=== PATIENT | male | born 1955 | race Caucasian/White ===

== ENCOUNTER 2017-01-03 05:02 | Inpatient (IN) | payer MEDICAID ==
[2017-01-03] MEDS ORDERED: IOPAMIDOL (ISOVUE-300) 100 ML BTL ONE (05:22)
[2017-01-03 06:06] LABS: % IMMATURE GRANULYOCYTES 0.6 % (0.0-1.1); ADD DIFF? NO; ADD MORPH? NO; ADD SCAN? NO; ATYPICAL LYMPHOCYTE FLAG 0 (0-99); FRAGMENT RBC FLAG 0 (0-99); HEMATOCRIT 51.2 % (40.0-51.0); HEMOGLOBIN 17.2 g/dL (13.7-17.5); LEFT SHIFT FLG 0 (0-99); LIPEMIA HEMOLYSIS FLAG 80 (0-99); MEAN CELL HEMOGLOBIN 27.8 pg (27.9-34.1); MEAN CELL HEMOGLOBIN CONCENTR. 33.6 g/dL (32.4-36.7); MEAN CELL VOLUME 82.8 fL (81.5-99.8); PLATELET CLUMPS FLAG 0 (0-99); PLATELET COUNT 298 10^3/uL (150-400); RED BLOOD CELL COUNT 6.18 10^6/uL (4.40-6.38); RED CELL DISTRIBUTION WIDTH 18.2 % (11.5-15.2)
[2017-01-03 06:15] LABS: ALANINE AMINOTRANSFERASE 40 IU/L (21-72); ALBUMIN 4.1 g/dL (3.5-5.0); ALKALINE PHOSPHATASE 120 IU/L (38-126); ANION GAP 19 mEq/L (8-16); ASPARTATE AMINOTRANSFERASE 40 IU/L (17-59); BILIRUBIN,TOTAL 1.6 mg/dL (0.1-1.4); BILIRUBIN-CONJUGATED 0.5 mg/dL (0.0-0.5); BILIRUBIN-UNCONJUGATED 1.1 mg/dL (0.0-1.1); CALCIUM 8.9 mg/dL (8.5-10.4); CARBON DIOXIDE 28 mEq/l (22-31); CHLORIDE 92 mEq/L (97-110); CREATININE 2.4 mg/dL (0.7-1.3); GLOMERULAR FILTRATION RATE 27; GLUCOSE 228 mg/dL (70-100); SODIUM 139 mEq/L (134-144); TOTAL PROTEIN 6.9 g/dL (6.3-8.2)
[2017-01-03 06:21] LABS: POTASSIUM 2.1 mEq/L (3.5-5.2)
[2017-01-03] MEDS ORDERED: POTASSIUM Cl (KCl) 100 ML IV ONE ×2 (06:23→07:21)
--- NOTE | 2017-01-03 06:50 | EDPHY ---
H & P Stated Complaint: Constipation Source: Patient, EMS Exam Limitations: No limitations - Personal History Current Tetanus Diphtheria and Acellular Pertussis (TDAP): Yes Tetanus Vaccine Date: 07/2011 - Medical/Surgical History Hx Asthma: No Hx Chronic Respiratory Disease: No Hx Diabetes: Yes Hx Cardiac Disease: Yes Hx Renal Disease: Yes Hx Cirrhosis: No Hx Alcoholism: No Hx HIV/AIDS: No Hx Splenectomy or Spleen Trauma: No Other PMH: medical: high blood pressure., renal problems, DM ,venous stasis, CHF. surgery: vasectomy. - Social History Smoking Status: Never smoked <Promise Castellon - Last Filed: 01/03/17 06:47> <Woody Mora - Last Filed: 01/03/17 09:46> Time Seen by Provider: 01/03/17 05:07 HPI/ROS: HPI The patient presents with constipation which has been present for the last 3 days, he has been unable to have a bowel movement. He normally takes Mylanta for this but that has not been helping. He has had abdominal pain since midnight tonight which is diffuse, cramping in nature, moderate in severity. He has not had any vomiting or fever. He is brought in by ambulance from his assisted living facility. He received Phenergan in the field. REVIEW OF SYSTEMS Constitutional: No fever, no chills. Eyes: No discharge. ENT: No sore throat. Cardiovascular: No chest pain, no palpitations. Respiratory: No cough, no shortness of breath. Gastrointestinal: See HPI Genitourinary: No hematuria. Musculoskeletal: No back pain. Skin: No rashes. Neurological: No headache. PMHx: Chronic kidney insufficiency, type 2 diabetes with nephropathy, history of anasarca, hypokalemia, suspected obstructive sleep apnea, hypertension, right -sided heart failure Soc Hx: Resides at an assisted living facility PHYSICAL General Appearance: Alert, no distress Eyes: Pupils equal and round no pallor or injection ENT, Mouth: Mucous membranes moist Respiratory: There are no retractions, lungs are clear to auscultation Cardiovascular: Regular rate and rhythm Gastrointestinal: Abdomen is obese and soft with mild diffuse tenderness, no rebound or guarding Neurological: A&O, moves all extremities Skin: Warm and dry, no rashes Musculoskeletal: Neck is supple non tender Extremities: symmetrical, full range of motion Psychiatric: Patient is oriented X 3, there is no agitation (Promise Castellon) Constitutional: Initial Vital Signs Temperature (C) 36.6 C 01/03/17 05:21 Heart Rate 67 01/03/17 05:21 Respiratory Rate 16 01/03/17 05:21 Blood Pressure 150/68 H 01/03/17 05:21 O2 Sat (%) 90 L 01/03/17 05:21 O2 Delivery Mode Nasal Cannula O2 (L/minute) 2.5 Allergies/Adverse Reactions: Sulfa (Sulfonamide Antibiotics) [Sulfa(Sulfonamide Antibiotics)] Allergy ( Intermediate, Verified 01/03/17 05:29) Hives Home Medications: Medication Instructions Recorded Aspirin [Aspirin 81mg (*)] 81 mg PO DAILY 01/02/14 Rosuvastatin Calcium [Crestor 20mg 20 mg PO HS 01/02/14 (*)] Ibuprofen [Motrin (*)] 400 mg PO BID PRN 05/11/16 Insulin Regular, Human [Humulin R 22 unit SQ DAILY@1730 05/11/16 U-500] Insulin Regular, Human [Humulin R 71 unit SQ DAILY@0730 05/11/16 U-500] Allopurinol [Allopurinol 100 MG 100 mg PO DAILY #0 tab 05/14/16 (*)] Bumetanide [Bumex (*)] 4 mg PO BID #30 tab 05/14/16 Gabapentin [Neurontin 300 MG (*)] 300 mg PO BID #0 cap 05/14/16 Metolazone [Zaroxolyn 2.5 mg (RX)] 2.5 mg PO DAILY 01/03/17 Metoprolol Tartrate [Lopressor 50 50 mg PO BID 01/03/17 mg (*)] Potassium Cl [Klor-Con 20 meq (*)] 40 meq PO BID 01/03/17 Medical Decision Making <Promise Castellon - Last Filed: 01/03/17 06:47> - Diagnostics Imaging: Discussed imaging studies w/ lithographer helper Radiologist, I viewed and interpreted images myself <Woody Mora - Last Filed: 01/03/17 09:46> ED Course/Re-evaluation: In the ER, basic labs were checked, potassium is low at 2.1. This could be related to over diuresis. He also has a leukocytosis. Because of his kidney disease, we plan to perform non con scan of his abdomen pelvis. At 7:00 a.m., the case is signed out to the oncoming provider Dr. Mora pending CT scan results. (Promise Castellon) Differential Diagnosis: This is a 61-year-old man with multiple medical problems including right-sided heart failure, obesity, diabetes, hypertension who presents with abdominal pain since midnight in the setting of constipation for the last 3 days. Differential diagnosis includes constipation, bowel obstruction, appendicitis. (Promise Castellon) Other Provider: I received signout at 0700. CT shows urinary obstruction with distended bladder. No surgical pathology. Given discomfort and hypokalemia, patient requires admission to the hospital. I spoke to Dr. Johnston who accepts admission. (Woody Mora) - Data Points Laboratory Results: Laboratory Results 01/03/17 05:50 01/03/17 05:50 01/03/17 01/03/17 05:50 05:50 WBC 15.84 10^3/uL H 10^3/uL (3.80-9.50) RBC 6.18 10^6/uL 10^6/uL (4.40-6.38) Hgb 17.2 g/dL g/dL (13.7-17.5) Hct 51.2 % H % (40.0-51.0) MCV 82.8 fL fL (81.5-99.8) MCH 27.8 pg L pg (27.9-34.1) MCHC 33.6 g/dL g/dL (32.4-36.7) RDW 18.2 % H % (11.5-15.2) Plt Count 298 10^3/uL 10^3/uL (150-400) MPV 11.0 fL fL (8.7-11.7) Neut % (Auto) 76.0 % H % (39.3-74.2) Lymph % (Auto) 12.9 % L % (15.0-45.0) [place] % (Auto) 8.0 % % (4.5-13.0) Eos % (Auto) 1.8 % % (0.6-7.6) Baso % (Auto) 0.7 % % (0.3-1.7) Nucleat RBC Rel Count 0.0 % % (0.0-0.2) Absolute Neuts (auto) 12.03 10^3/uL H 10^3/uL (1.70-6.50) Absolute Lymphs (auto) 2.05 10^3/uL 10^3/uL (1.00-3.00) Absolute Monos (auto) 1.27 10^3/uL H 10^3/uL (0.30-0.80) Absolute Eos (auto) 0.28 10^3/uL 10^3/uL (0.03-0.40) Absolute Basos (auto) 0.11 10^3/uL H 10^3/uL (0.02-0.10) Absolute Nucleated RBC 0.00 10^3/uL 10^3/uL (0-0.01) Immature Gran % 0.6 % % (0.0-1.1) Immature Gran # 0.10 10^3/uL 10^3/uL (0.00-0.10) Sodium 139 mEq/L mEq/L (134-144) Potassium 2.1 mEq/L L* mEq/L (3.5-5.2) Chloride 92 mEq/L L mEq/L (97-110) Carbon Dioxide 28 mEq/l mEq/l (22-31) Anion Gap 19 mEq/L H mEq/L (8-16) BUN 69 mg/dL H mg/dL (7-23) Creatinine 2.4 mg/dL H mg/dL (0.7-1.3) Estimated GFR 27 Glucose 228 mg/dL H mg/dL (70-100) Calcium 8.9 mg/dL mg/dL (8.5-10.4) Total Bilirubin 1.6 mg/dL H mg/dL (0.1-1.4) Conjugated Bilirubin 0.5 mg/dL mg/dL (0.0-0.5) Unconjugated Bilirubin 1.1 mg/dL mg/dL (0.0-1.1) AST 40 IU/L IU/L (17-59) ALT 40 IU/L IU/L (21-72) Alkaline Phosphatase 120 IU/L IU/L (38-126) Total Protein 6.9 g/dL g/dL (6.3-8.2) Albumin 4.1 g/dL g/dL (3.5-5.0) Lipase 87.0 IU/L IU/L (23-300) Medications Given: Discontinued Medications Potassium Chloride (Potassium Cl 20 Meq (Premix)) 100 mls @ 50 mls/hr IV EDNOW ONE Stop: 01/03/17 08:22 Last Admin: 01/03/17 07:22 Dose: Not Given Potassium Chloride (Potassium Cl 10 Meq (Premix)) 100 mls @ 100 mls/hr IV ONCE ONE Stop: 01/03/17 08:20 Last Admin: 01/03/17 07:38 Dose: Not Given Potassium Chloride (Potassium Cl 10 Meq (Premix)) 100 mls @ 100 mls/hr IV EDNOW ONE Stop: 01/03/17 08:20 Last Admin: 01/03/17 07:36 Dose: Not Given Morphine Sulfate (Morphine) 4 mg IVP EDNOW ONE Stop: 01/03/17 06:29 Last Admin: 01/03/17 06:38 Dose: 4 mg Potassium Chloride (Potassium Chloride Oral Liquid) 40 meq PO EDNOW ONE Stop: 01/03/17 07:38 Last Admin: 01/03/17 08:17 Dose: 40 meq Departure <Promise Castellon - Last Filed: 01/03/17 06:47> <Woody Mora - Last Filed: 01/03/17 09:46> - Departure Disposition: [facility] Inpatient Acute Clinical Impression: Hypokalemia, Renal failure (ARF), acute on chronic Hypertension Qualifiers: Hypertension type: essential hypertension Qualified Code(s): I10 - Essential ( primary) hypertension Diabetes Qualifiers: Diabetes mellitus type: due to underlying condition Diabetes mellitus complication status: with other specified complication 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
[2017-01-03] MEDS ORDERED: POTASSIUM Cl (KCl) 10 MEQ/100 ML BAG IV ONE (07:07)
[2017-01-03] MEDS: POTASSIUM Cl (KCl) 100 ML IV ONE ×2 (07:22→07:38)
[2017-01-03] MEDS ORDERED: POTASSIUM CL 20 MEQ/15 ML UDCUP PO ONE (07:37)
[2017-01-03] MEDS ORDERED: ACETAMINOPHEN 325 MG TAB PO PRN (07:59)
[2017-01-03] MEDS ORDERED: ONDANSETRON DISINTEGRATING 4 MG TAB PO PRN (07:59)
[2017-01-03] MEDS ORDERED: ONDANSETRON 4 MG/2 ML VIAL IVP PRN (07:59)
[2017-01-03 08:07] LABS: COLOR YELLOW; LEUKOCYTE ESTERASE,URINE NEGATIVE (NEGATIVE); NITRITE,URINE NEGATIVE (NEGATIVE)
[2017-01-03] MEDS ORDERED: D50W 25 GM/50 ML SYR IVP PRN ×3 (08:17→17:09)
[2017-01-03] MEDS ORDERED: TAMSULOSIN HCL 0.4 MG CAP PO ONE (08:22)
[2017-01-03] MEDS: TAMSULOSIN HCL 0.4 MG CAP PO SCH (08:26)
--- NOTE | 2017-01-03 08:38 | GHP ---
[f rep st] HISTORY AND PHYSICAL DATE OF ADMISSION: 01/03/2017 CHIEF COMPLAINT: Abdominal pain. HISTORY OF PRESENT ILLNESS: This is a 61-year-old man with right-sided heart failure who presents with abdominal pain. This is acute, described as lower abdomen. Started this evening. Because of this, he presented to the ED. In the ED, a CT scan was obtained which showed urinary retention. Gallo was placed. He had immediate resolution of his abdominal pain. There were no other acute findings. He has a history of right-sided heart failure with significant lower extremity edema. He is on diuretics. He takes Bumex and metolazone. Meds are still being reconciled, but it appears that he takes potassium 80 twice a day. PAST MEDICAL/SURGICAL HISTORY: 1. Chronic right-sided heart failure. 2. Diabetes mellitus. 3. Severe obesity. 4. Chronic kidney disease, baseline creatinine about 2. 5. Diabetic nephropathy. 6. Hypertension. 7. Hyperlipidemia. 8. Obstructive sleep apnea. 9. Mild hypokalemia. 10. Gout. MEDICATIONS: Please see medication reconciliation. ALLERGIES: Sulfa. FAMILY HISTORY: Noncontributory. SOCIAL HISTORY: He lives at [facility]. REVIEW OF SYSTEMS: A 10-point review of systems is conducted and is negative, except per HPI. PHYSICAL EXAMINATION: VITAL SIGNS: Blood pressure 149/68, heart rate 65, respiration rate 14, temperature 36.8. GENERAL: The patient is a very pleasant man. He is obese. HEENT: Show him to be normocephalic, atraumatic. CARDIOVASCULAR: Regular rate and rhythm. No murmurs, rubs, or gallops. PULMONARY: Shows lungs clear to auscultation bilaterally. ABDOMEN: Soft, nontender, nondistended. SKIN: Shows no rash. : Shows a Gallo in place. NEUROLOGIC: Shows him to be alert and oriented x3. He is moving all extremities. PSYCHIATRIC: Shows normal mood and affect. LABORATORIES: White count 15.8. INR is 1.07. Potassium is 2.1, creatinine is 2.4, BUN is 69. Urinalysis is pending. Urine drug screen is negative. DATA: 1. I reviewed the initial interpretation of his abdominal pelvis CT scan. Findings per HPI. 2. I discussed with Dr. Mora. We will admit for hypokalemia. IMPRESSION AND PLAN: A 61-year-old man with abdominal pain which is resolved and hypokalemia. 1. Urinary retention causing abdominal pain: Resolved with Gallo in place. He will need to be discharged with a Gallo. We will start him on Flomax. He will need urology followup. 2. Hypokalemia: This is severe. He tells me his normal potassium is between 2 and 3. He is not on any potassium-sparing diuretics. I have placed a call to Renal to corroborate this. He has already received 40 of oral potassium. 3. Right-sided heart failure: We will continue his outpatient diuretics. 4. Chronic kidney disease: Avoid nephrotoxins. 5. Diabetes mellitus: We will continue his home insulin and follow his blood sugars. 6. Obstructive sleep apnea. 7. Hypertension. 8. Hyperlipidemia. 9. Code status is do not resuscitate. 10. Venous thromboembolism risk is moderate to high. We will give him heparin. /[id number]/MODL MTDD
[2017-01-03] MEDS ORDERED: INSULIN LISPRO 100 UNIT/ML SC SCH ×2 (12:00→17:30)
--- NOTE | 2017-01-03 12:06 | PDGENHP ---
History and Physical - Chief Complaint CKD, hypokalemia - History of Present Illness Mr. Elmore is a 61 yo M with h/o HTN, CKD stage IV with baseline Cr around 2.2 -2.6, who presented today with abdominal pain and found to be hypokalemic. He presented with severe abdominal pain that started last night, found to have full bladder and curiel placed with 1.6L UOP, immediately felt better. On labs, his Cr is at baseline at 2.4, but K 2.1. He follows with beauty consultant Dr. Abdi but has not been seen in clinic since 05/2016, has missed several appointments in the interim. His K tends to run low, likely due to being on metolazone and Bumex for his chronic edema. His K usually is in the 2.8-3.3 range, takes potassium replacement at home, now up to 80meq daily. He states he was taking his meds at home. History Information - Allergies/Home Medication List Allergies/Adverse Reactions: Sulfa (Sulfonamide Antibiotics) [Sulfa(Sulfonamide Antibiotics)] Allergy ( Intermediate, Verified 01/03/17 05:29) Hives Home Medications: Aspirin [Aspirin 81mg (*)] 81 mg PO DAILY 01/02/14 [Last Taken 01/02/17] Rosuvastatin Calcium [Crestor 20mg (*)] 20 mg PO HS 01/02/14 [Last Taken ] Ibuprofen [Motrin (*)] 400 mg PO BID PRN 05/11/16 [Last Taken Unknown] Insulin Regular, Human [Humulin R U-500] 130 unit SQ DAILY@1800 05/11/16 [Last Taken Unknown] Insulin Regular, Human [Humulin R U-500] 360 unit SQ DAILY@0730 05/11/16 [Last Taken 01/02/17] Gatifloxacin 0.5% [Zymaxid 0.5%] 1 drop EACHEYE AD PRN 01/03/17 [Last Taken Unknown] Insulin Regular, Human [Humulin R U-500] 30 unit SQ DAILY@12 01/03/17 [Last Taken 01/02/17] Ketorolac 0.5% [Acular 0.5% Opht Drops (*)] 1 drops EACHEYE AD PRN 01/03/17 [ Last Taken Unknown] Metolazone [Zaroxolyn 2.5 mg (RX)] 2.5 mg PO DAILY 01/03/17 [Last Taken 01/02/17 ] Metoprolol Tartrate [Lopressor 50 mg (*)] 50 mg PO BID 01/03/17 [Last Taken ] Potassium Cl [Klor-Con 20 meq (*)] 40 meq PO BID 01/03/17 [Last Taken 01/02/17] oxyCODONE IR [Oxycodone Ir (*)] 10 mg PO TID PRN 01/03/17 [Last Taken 01/02/17] I have personally reviewed and updated: medical history - Past Medical History Additional medical history: CKD stage IV. HTN. DM. Gout. CHF. hypokalemia. ARIEL - Surgical History Additional surgical history: noncontributory - Family History Additional family history: noncontributory - Social History Smoking Status: Never smoked Review of Systems ROS: 10pt was reviewed & negative except for what was stated in HPI & below Physical Exam Temp Pulse Resp BP Pulse Ox 36.8 C 88 16 133/85 H 96 01/03/17 06:00 01/03/17 11:00 01/03/17 11:00 01/03/17 11:00 01/03/17 11:00 Constitutional: no apparent distress, not in pain, obese Eyes: PERRL, anicteric sclera, EOMI Ears, Nose, Mouth, Throat: moist mucous membranes, hearing normal Cardiovascular: regular rate and rhythym, pulses symmetric bilaterally, edema (+ 1 edema BLE) Peripheral Pulses: 2+: dorsalis-pedis (R), dorsalis-pedis (L) Respiratory: no respiratory distress, no rales or rhonchi, clear to auscultation Gastrointestinal: normoactive bowel sounds, soft, non-tender abdomen Skin: warm, No rash Musculoskeletal: no muscle tenderness, no joint effusions Neurologic: AAOx3, CN II-XII Intact, No asterixes Psychiatric: interacting appropriately, not anxious, not encephalopathic Lab Data & Imaging Review 01/03/17 05:50 01/03/17 05:50 WBC 15.84 10^3/uL (3.80-9.50) H 01/03/17 05:50 RBC 6.18 10^6/uL (4.40-6.38) 01/03/17 05:50 Hgb 17.2 g/dL (13.7-17.5) 01/03/17 05:50 Hct 51.2 % (40.0-51.0) H 01/03/17 05:50 MCV 82.8 fL (81.5-99.8) 01/03/17 05:50 MCH 27.8 pg (27.9-34.1) L 01/03/17 05:50 MCHC 33.6 g/dL (32.4-36.7) 01/03/17 05:50 RDW 18.2 % (11.5-15.2) H 01/03/17 05:50 Plt Count 298 10^3/uL (150-400) 01/03/17 05:50 MPV 11.0 fL (8.7-11.7) 01/03/17 05:50 Neut % (Auto) 76.0 % (39.3-74.2) H 01/03/17 05:50 Lymph % (Auto) 12.9 % (15.0-45.0) L 01/03/17 05:50 [place] % (Auto) 8.0 % (4.5-13.0) 01/03/17 05:50 Eos % (Auto) 1.8 % (0.6-7.6) 01/03/17 05:50 Baso % (Auto) 0.7 % (0.3-1.7) 01/03/17 05:50 Nucleat RBC Rel Count 0.0 % (0.0-0.2) 01/03/17 05:50 Absolute Neuts (auto) 12.03 10^3/uL (1.70-6.50) H 01/03/17 05:50 Absolute Lymphs (auto) 2.05 10^3/uL (1.00-3.00) 01/03/17 05:50 Absolute Monos (auto) 1.27 10^3/uL (0.30-0.80) H 01/03/17 05:50 Absolute Eos (auto) 0.28 10^3/uL (0.03-0.40) 01/03/17 05:50 Absolute Basos (auto) 0.11 10^3/uL (0.02-0.10) H 01/03/17 05:50 Absolute Nucleated RBC 0.00 10^3/uL (0-0.01) 01/03/17 05:50 Immature Gran % 0.6 % (0.0-1.1) 01/03/17 05:50 Immature Gran # 0.10 10^3/uL (0.00-0.10) 01/03/17 05:50 Sodium 139 mEq/L (134-144) 01/03/17 05:50 Potassium 2.1 mEq/L (3.5-5.2) L* 01/03/17 05:50 Chloride 92 mEq/L (97-110) L 01/03/17 05:50 Carbon Dioxide 28 mEq/l (22-31) 01/03/17 05:50 Anion Gap 19 mEq/L (8-16) H 01/03/17 05:50 BUN 69 mg/dL (7-23) H 01/03/17 05:50 Creatinine 2.4 mg/dL (0.7-1.3) H 01/03/17 05:50 Estimated GFR 27 01/03/17 05:50 Glucose 228 mg/dL (70-100) H 01/03/17 05:50 Calcium 8.9 mg/dL (8.5-10.4) 01/03/17 05:50 Total Bilirubin 1.6 mg/dL (0.1-1.4) H 01/03/17 05:50 Conjugated Bilirubin 0.5 mg/dL (0.0-0.5) 01/03/17 05:50 Unconjugated Bilirubin 1.1 mg/dL (0.0-1.1) 01/03/17 05:50 AST 40 IU/L (17-59) 01/03/17 05:50 ALT 40 IU/L (21-72) 01/03/17 05:50 Alkaline Phosphatase 120 IU/L (38-126) 01/03/17 05:50 Total Protein 6.9 g/dL (6.3-8.2) 01/03/17 05:50 Albumin 4.1 g/dL (3.5-5.0) 01/03/17 05:50 Lipase 87.0 IU/L (23-300) 01/03/17 05:50 Urine Color YELLOW 01/03/17 08:02 Urine Appearance CLEAR 01/03/17 08:02 Urine pH 7.0 (5.0-7.5) 01/03/17 08:02 Ur Specific [place] 1.008 (1.002-1.030) 01/03/17 08:02 Urine Protein NEGATIVE (NEGATIVE) 01/03/17 08:02 Urine Ketones NEGATIVE (NEGATIVE) 01/03/17 08:02 Urine Blood NEGATIVE (NEGATIVE) 01/03/17 08:02 Urine Nitrate NEGATIVE (NEGATIVE) 01/03/17 08:02 Urine Bilirubin NEGATIVE (NEGATIVE) 01/03/17 08:02 Urine Urobilinogen NEGATIVE EU (0.2-1.0) 01/03/17 08:02 Ur Leukocyte Esterase NEGATIVE (NEGATIVE) 01/03/17 08:02 Urine Glucose NEGATIVE (NEGATIVE) 01/03/17 08:02 Assessment & Plan Assessment: Assessment/Plan: CKD stage IV: pt has Cr at baseline at 2.4, no hematuria or proteinuria on UA. - No need for HD. - Will continue to monitor. - Avoid nephrotoxins. - Encouraged pt to f/u in clinic, will schedule on his discharge. Hypokalemia: chronic, markedly low today at 2.1. Likely due to his diuretic use. - Hold diuretics for now. - Given KCl 40meq po x1 today. - Will recheck today and further replace as needed. - If further diuresis required, could try a potassium-sparing diuretic, but would need close monitoring with his renal disease. Hypervolemia: likely due to CHF, chronic. - Hold diuretics now as above. - May need to consider a potassium sparing diuretic. Thank you for the interesting consult. Nephrology will continue to follow, please call with any additional questions or concerns.
[2017-01-03] MEDS ORDERED: oxyCODONE IR 5 MG TAB PO PRN (12:57)
[2017-01-03] MEDS ORDERED: KETOROLAC 0.5% 5 ML OPHT.BTL EACHEYE PRN (12:57)
[2017-01-03] MEDS ORDERED: GATIFLOXACIN 0.5% 2.5 ML OPHT DROPS EACHEYE PRN (12:57)
[2017-01-03 13:12] LABS: ANION GAP 16 mEq/L (8-16); CALCIUM 8.8 mg/dL (8.5-10.4); CARBON DIOXIDE 30 mEq/l (22-31); CHLORIDE 91 mEq/L (97-110); CREATININE 2.2 mg/dL (0.7-1.3); GLOMERULAR FILTRATION RATE 30; GLUCOSE 294 mg/dL (70-100); SODIUM 137 mEq/L (134-144)
[2017-01-03 13:22] LABS: POTASSIUM 2.3 mEq/L (3.5-5.2)
[2017-01-03] MEDS: HEPARIN 5,000 UNIT/0.5 ML SYR SC SCH ×2 (15:21→21:50)
[2017-01-03] MEDS: POTASSIUM CL 20 MEQ TAB PO SCH ×2 (15:21→21:50)
[2017-01-03] MEDS: ASPIRIN 81 MG CHEWABLE TAB PO SCH (15:21)
[2017-01-03] MEDS: oxyCODONE IR 5 MG TAB PO PRN (15:21)
[2017-01-03] MEDS: METOPROLOL TARTRATE 50 MG TAB PO SCH ×2 (15:21→21:52)
[2017-01-03] MEDS: POTASSIUM Cl (KCl) 100 ML IV SCH ×6 (15:22→23:45)
--- NOTE | 2017-01-03 17:20 | HOSPPROG ---
Hospitalist Progress Note Assessment/Plan: Pt admitted this am. I saw pt and reviewed the chart. Urinary retention - curiel in place, will continue until outpt urology f/u Hypokalemia - in setting of high diuretic and insulin doses. K is up to 2.3 from 2.1 after 40 po K and 30 IV K. Will continue aggressive repletion with 40 mEq's PO TID and 10 mEq's IV x6 doses, recheck this evening. Holding diuretics until K improved. May do better with a potassium sparing diuretic, though will need to monitor closely with kidney disease CKD - Cr near baseline, appreciate renal consult Right heart failure - difficult to diurese. He is not hypoxic though is, as always, volume up. Will need to resume diuretics tomorrow. DM - on large doses of U-500 and unable to obtain his home insulin. Discussed with pharmacy. There is no easy conversion to regular insulin based on the difference in absorption. Will give Lantus 60 u BID plus high dose SSI with Lispro ACHS, uptitrate as indicated. ARIEL - he doesn't use cpap, should have this evaluated as outpt Hypertension Hyperlipidemia Full code Dispo - obs for now, will change to inpt tomorrow if ongoing hospitalization required. Subjective: Pt feels better. He is fatigued. Denies CP or SOB. Objective: Vital Signs Temp Pulse Resp BP Pulse Ox 36.8 C 82 19 108/61 94 01/03/17 06:00 01/03/17 15:21 01/03/17 14:22 01/03/17 15:21 01/03/17 14:22 Laboratory Results 01/03/17 12:37 01/02/17 01/03/17 01/04/17 05:59 05:59 05:59 Output Total 3200 Balance -3200 ICD10 Worksheet Patient Problems: Problems Problem Status Onset Diabetes Acute Hypokalemia Acute Renal failure (ARF), acute on chronic Acute Hypertension Chronic Acute hypokalemia Acute Anasarca Acute Bilateral lower extremity edema Acute CHF (congestive heart failure) Acute CHF with right heart failure Acute Elevated BUN Acute Fluid overload Acute Obesity Acute Peripheral edema Acute Pneumonia Acute Hyperlipidemia Chronic Renal failure, chronic Chronic
[2017-01-03] MEDS: INSULIN LISPRO 100 UNIT/ML SC SCH ×2 (17:30→21:50)
[2017-01-03] MEDS ORDERED: INSULIN REGULAR HUMAN 130 UNIT SQ SCH (18:00)
[2017-01-03 18:51] LABS: ANION GAP 15 mEq/L (8-16); CALCIUM 8.4 mg/dL (8.5-10.4); CARBON DIOXIDE 29 mEq/l (22-31); CHLORIDE 90 mEq/L (97-110); CREATININE 2.1 mg/dL (0.7-1.3); GLOMERULAR FILTRATION RATE 32; GLUCOSE 406 mg/dL (70-100); SODIUM 134 mEq/L (134-144)
[2017-01-03 19:00] LABS: POTASSIUM 2.3 mEq/L (3.5-5.2)
[2017-01-03] MEDS ORDERED: INSULIN GLARGINE 100 UNITS/ML SYRINGE SC SCH ×2 (21:00)
[2017-01-03] MEDS: ROSUVASTATIN CALCIUM 20 MG TAB PO SCH (21:50)
[2017-01-03] MEDS: GABAPENTIN 300 MG CAP PO SCH (21:50)
[2017-01-04] MEDS: POTASSIUM Cl (KCl) 100 ML IV SCH ×5 (02:22→11:05)
[2017-01-04 05:54] LABS: % IMMATURE GRANULYOCYTES 0.7 % (0.0-1.1); ADD DIFF? NO; ADD MORPH? NO; ADD SCAN? NO; ATYPICAL LYMPHOCYTE FLAG 0 (0-99); FRAGMENT RBC FLAG 0 (0-99); HEMATOCRIT 47.3 % (40.0-51.0); HEMOGLOBIN 15.8 g/dL (13.7-17.5); LEFT SHIFT FLG 10 (0-99); LIPEMIA HEMOLYSIS FLAG 80 (0-99); MEAN CELL HEMOGLOBIN 28.1 pg (27.9-34.1); MEAN CELL HEMOGLOBIN CONCENTR. 33.4 g/dL (32.4-36.7); MEAN CELL VOLUME 84.2 fL (81.5-99.8); PLATELET CLUMPS FLAG 20 (0-99); PLATELET COUNT 249 10^3/uL (150-400); RED BLOOD CELL COUNT 5.62 10^6/uL (4.40-6.38); RED CELL DISTRIBUTION WIDTH 17.7 % (11.5-15.2)
[2017-01-04] MEDS: HEPARIN 5,000 UNIT/0.5 ML SYR SC SCH ×3 (06:13→21:49)
[2017-01-04 06:21] LABS: POTASSIUM 2.3 mEq/L (3.5-5.2)
[2017-01-04 06:57] LABS: ANION GAP 14 mEq/L (8-16); CALCIUM 8.6 mg/dL (8.5-10.4); CARBON DIOXIDE 27 mEq/l (22-31); CHLORIDE 95 mEq/L (97-110); CREATININE 1.7 mg/dL (0.7-1.3); GLOMERULAR FILTRATION RATE 41; GLUCOSE 342 mg/dL (70-100); SODIUM 136 mEq/L (134-144)
[2017-01-04] MEDS ORDERED: [UNRECOGNIZED DRUG - OTHER] SQ SCH (07:30)
[2017-01-04] MEDS ORDERED: INSULIN REGULAR SQ SCH (07:30)
[2017-01-04] MEDS ORDERED: POTASSIUM CL 20 MEQ TAB PO SCH (08:13)
[2017-01-04] MEDS: ASPIRIN 81 MG CHEWABLE TAB PO SCH (08:33)
[2017-01-04] MEDS: GABAPENTIN 300 MG CAP PO SCH ×2 (08:33→21:45)
[2017-01-04] MEDS: TAMSULOSIN HCL 0.4 MG CAP PO SCH (08:34)
[2017-01-04] MEDS: METOPROLOL TARTRATE 50 MG TAB PO SCH ×2 (08:34→21:45)
[2017-01-04] MEDS: INSULIN LISPRO 100 UNIT/ML SC SCH ×4 (08:43→21:47)
[2017-01-04] MEDS: INSULIN GLARGINE 100 UNITS/ML SYRINGE SC SCH ×2 (08:43→21:48)
[2017-01-04] MEDS ORDERED: SPIRONOLACTONE 50 MG TAB PO ONE (10:08)
--- NOTE | 2017-01-04 10:38 | SOAPPROG ---
SOAP Progress Note Assessment/Plan: Assessment/Plan: CKD stage IV: Cr currently better than baseline at 1.7, likely due to diuretics being held. - Will continue to monitor. - Avoid nephrotoxins. Hypokalemia: chronic, likely from diuretic use, pt on Bumex and metolazone at home. K only up to 2.3 today. - Will increase po replacement to KCl 60meq po q6h today. - Will stop IV replacement as want to avoid so much volume. - Will give a dose of spironolactone today. - Will continue to monitor today q6h. Hypervolemia: chronic, likely due to CHF. - Holding Bumex and metolazone for now given above hypokalemia. - Will give spironolactone x1 today and monitor. Subjective: No acute events overnight. Pt has received 180meq KCl in the past 24 hours with K up from 2.1 to 2.3. He has not had any diuretics, notes he has persistent swelling in his legs that has gotten a bit worse. He is breathing comfortably, has no complaints except that he wants to go home soon. Objective: Vital Signs Temp Pulse Resp BP Pulse Ox 36.6 C 71 20 125/81 H 92 01/04/17 08:00 01/04/17 08:34 01/04/17 08:00 01/04/17 08:34 01/04/17 08:00 Laboratory Results 01/04/17 05:33 01/04/17 05:33 01/03/17 01/04/17 01/05/17 05:59 05:59 05:59 Intake Total 1610 Output Total 5650 Balance -4040 General; alert and oriented, no acute distress Eyes; EOMI, PERRL OP: Clear CV: RRR Resp: nonlabored respirations on RA Abd: Soft, NT, obese Ext: +1 edema BLE Neuro: CN II-XII Grossly intact, no asterixis Psych: cooperative, blunted affect ICD10 Worksheet Patient Problems: Problems Problem Status Onset Diabetes Acute Hypokalemia Acute Renal failure (ARF), acute on chronic Acute Hypertension Chronic Acute hypokalemia Acute Anasarca Acute Bilateral lower extremity edema Acute CHF (congestive heart failure) Acute CHF with right heart failure Acute Elevated BUN Acute Fluid overload Acute Obesity Acute Peripheral edema Acute Pneumonia Acute Hyperlipidemia Chronic Renal failure, chronic Chronic
[2017-01-04] MEDS: POTASSIUM CL 20 MEQ TAB PO SCH ×3 (11:41→21:47)
[2017-01-04] MEDS: oxyCODONE IR 5 MG TAB PO PRN ×4 (11:44→21:45)
[2017-01-04] MEDS ORDERED: INSULIN REGULAR HUMAN 30 UNIT SQ SCH (12:00)
[2017-01-04 12:22] LABS: POTASSIUM 2.5 mEq/L (3.5-5.2)
--- NOTE | 2017-01-04 17:33 | HOSPPROG ---
Hospitalist Progress Note Assessment/Plan: Urinary retention - curiel in place, will continue until outpt urology f/u Hypokalemia - in setting of high diuretic and insulin doses. K is up to 2.5 from 2.1 after a total of 180 mEq's of potassium. Will increase or K to 60 q6h and minimize IV K in effort to avoid excess volume. Cont q6h labs. CKD - Cr near baseline, appreciate renal consult Right heart failure - difficult to diurese. He is not hypoxic though is, as always, volume up. Lasix and Metolazone held due to critical hypokalemia. Initiating potassium sparing diuretic therapy today per renal with close attention to Cr. DM - on large doses of U-500 and unable to obtain his home insulin. Discussed with pharmacy. There is no easy conversion to regular insulin based on the difference in absorption. Will up-titrate Lantus and continue high dose SSI. ARIEL - he doesn't use cpap, should have this evaluated as outpt Hypertension Hyperlipidemia Full code Dispo - change to inpatient as will need ongoing inpt care for refractory hypokalemia and hypervolemia. Subjective: Pt feels ok, "I want to go home". Says a potassium of 2.3 is "normal" for him. Denies tetany. No CP, SOB, or orthopnea. No fevers. Objective: Vital Signs Temp Pulse Resp BP Pulse Ox 36.8 C 78 14 125/81 H 93 01/04/17 15:50 01/04/17 15:50 01/04/17 15:50 01/04/17 15:50 01/04/17 15:50 Laboratory Results 01/04/17 05:33 01/03/17 01/04/17 01/05/17 05:59 05:59 05:59 Intake Total 1610 Output Total 5650 1600 Balance -4040 -1600 - Physical Exam Constitutional: no apparent distress, obese Eyes: PERRL Ears, Nose, Mouth, Throat: moist mucous membranes Cardiovascular: regular rate and rhythym Respiratory: no respiratory distress, clear to auscultation Gastrointestinal: normoactive bowel sounds, soft, non-tender abdomen Skin: warm Musculoskeletal: full muscle strength, other (2+ bL LE edema) Neurologic: AAOx3 Psychiatric: interacting appropriately ICD10 Worksheet Patient Problems: Problems Problem Status Onset Diabetes Acute Hypokalemia Acute Renal failure (ARF), acute on chronic Acute Hypertension Chronic Acute hypokalemia Acute Anasarca Acute Bilateral lower extremity edema Acute CHF (congestive heart failure) Acute CHF with right heart failure Acute Elevated BUN Acute Fluid overload Acute Obesity Acute Peripheral edema Acute Pneumonia Acute Hyperlipidemia Chronic Renal failure, chronic Chronic
[2017-01-04 17:35] LABS: POTASSIUM 3.1 mEq/L (3.5-5.2)
[2017-01-04] MEDS: ROSUVASTATIN CALCIUM 20 MG TAB PO SCH (21:45)
[2017-01-05] MEDS: oxyCODONE IR 5 MG TAB PO PRN ×5 (03:07→23:53)
[2017-01-05] MEDS: POTASSIUM CL 20 MEQ TAB PO SCH ×3 (03:19→23:49)
[2017-01-05 05:13] LABS: HEMOGLOBIN 15.4 g/dL (13.7-17.5); MEAN CELL HEMOGLOBIN 28.1 pg (27.9-34.1); MEAN CELL HEMOGLOBIN CONCENTR. 32.8 g/dL (32.4-36.7); MEAN CELL VOLUME 85.8 fL (81.5-99.8); RED BLOOD CELL COUNT 5.48 10^6/uL (4.40-6.38); RED CELL DISTRIBUTION WIDTH 17.1 % (11.5-15.2)
[2017-01-05 05:15] LABS: ANION GAP 11 mEq/L (8-16); CALCIUM 8.5 mg/dL (8.5-10.4); CARBON DIOXIDE 31 mEq/l (22-31); CHLORIDE 96 mEq/L (97-110); CREATININE 1.6 mg/dL (0.7-1.3); GLOMERULAR FILTRATION RATE 44; GLUCOSE 278 mg/dL (70-100); POTASSIUM 3.1 mEq/L (3.5-5.2); SODIUM 138 mEq/L (134-144)
[2017-01-05] MEDS: HEPARIN 5,000 UNIT/0.5 ML SYR SC SCH ×3 (05:42→20:38)
[2017-01-05] MEDS: ASPIRIN 81 MG CHEWABLE TAB PO SCH (07:31)
[2017-01-05] MEDS: TAMSULOSIN HCL 0.4 MG CAP PO SCH (07:31)
[2017-01-05] MEDS: GABAPENTIN 300 MG CAP PO SCH ×4 (07:31→20:38)
[2017-01-05] MEDS: METOPROLOL TARTRATE 50 MG TAB PO SCH ×2 (07:32→20:38)
[2017-01-05] MEDS: INSULIN LISPRO 100 UNIT/ML SC SCH ×4 (08:23→23:49)
[2017-01-05] MEDS: INSULIN GLARGINE 100 UNITS/ML SYRINGE SC SCH ×2 (08:23→20:37)
--- NOTE | 2017-01-05 08:56 | HOSPPROG ---
Hospitalist Progress Note Assessment/Plan: Urinary retention - curiel in place, will continue until outpt urology f/u Hypokalemia - in setting of high diuretic and insulin doses. K is up to 3.1 from 2.1 after aggressive replacement, requiring ~200 mEq's per day po/iv. Will reduce oral dose to 40 mEq's TID and continue spironolactone. CKD - Cr at/below baseline, appreciate renal consult, discussed with Dr. Carlin. Right heart failure - He is neither hypoxic nor tachypneic, though is, as always , hypervolemic. Lasix and Metolazone held due to critical hypokalemia. He is actually diuresing quite nicely on Spironolactone monotherapy. Net neg >6L. Will continue Spironolactone for now. Resume Lasix when K a bit more improved. Follow Cr closely. DM - on large doses of U-500 and unable to obtain his home insulin. Discussed with pharmacy. There is no easy conversion to regular insulin based on the difference in absorption. Will up-continue Lantus and continue high dose SSI. ARIEL - he doesn't use cpap, should have this evaluated as outpt Hypertension Hyperlipidemia Full code Dispo - cont inpt Subjective: PT is very depressed. He denies CP or SOB. Complains of LE neuropathic pain. Objective: Vital Signs Temp Pulse Resp BP Pulse Ox 36.8 C 79 18 127/87 H 90 L 01/05/17 08:00 01/05/17 08:00 01/05/17 08:00 01/05/17 08:00 01/05/17 08:00 Laboratory Results 01/05/17 04:46 01/05/17 04:46 01/04/17 01/05/17 01/06/17 05:59 05:59 05:59 Intake Total 1000 Output Total 1800 Balance -800 - Physical Exam Constitutional: no apparent distress, obese Eyes: PERRL Ears, Nose, Mouth, Throat: moist mucous membranes Cardiovascular: regular rate and rhythym Respiratory: no respiratory distress, clear to auscultation Gastrointestinal: normoactive bowel sounds, soft, non-tender abdomen Skin: warm Musculoskeletal: other (b/l LE edema, 2+) Neurologic: AAOx3 Psychiatric: depressed, flat affect ICD10 Worksheet Patient Problems: Problems Problem Status Onset Diabetes Acute Hypokalemia Acute Renal failure (ARF), acute on chronic Acute Hypertension Chronic Acute hypokalemia Acute Anasarca Acute Bilateral lower extremity edema Acute CHF (congestive heart failure) Acute CHF with right heart failure Acute Elevated BUN Acute Fluid overload Acute Obesity Acute Peripheral edema Acute Pneumonia Acute Hyperlipidemia Chronic Renal failure, chronic Chronic
[2017-01-05] MEDS ORDERED: POTASSIUM CL 20 MEQ TAB PO SCH (09:00)
[2017-01-05] MEDS: SPIRONOLACTONE 50 MG TAB PO SCH (10:32)
[2017-01-05 14:56] LABS: POTASSIUM 2.9 mEq/L (3.5-5.2)
--- NOTE | 2017-01-05 17:40 | SOAPPROG ---
SOAP Progress Note Assessment/Plan: Assessment/Plan: CKD stage IV: Cr currently better than baseline at 1.6, likely due to diuretics being held. - Will continue to monitor. - Avoid nephrotoxins. Hypokalemia: chronic, likely from diuretic use, pt on Bumex and metolazone at home. K up to 3.1 today. - Will change po replacement to KCl 60meq po TID today. - Would avoid IV replacement as want to avoid so much volume. - Will give another dose of spironolactone today. - Will continue to monitor today q6h. Hypervolemia: chronic, likely due to CHF. - Holding Bumex and metolazone for now given above hypokalemia. - Giving spironolactone as above. Leg pain: may be worsening of his neuropathy, had his gabapentin increased today. Will order doppler to r/o DVT bilaterally. Subjective: No acute events overnight. Pt with very painful legs today, cannot even move them, not tender to palpation. The swelling seems stable. Objective: Vital Signs Temp Pulse Resp BP Pulse Ox 37.5 C 85 18 143/96 H 93 01/05/17 15:52 01/05/17 15:52 01/05/17 15:52 01/05/17 15:52 01/05/17 15:52 Laboratory Results 01/05/17 04:46 01/05/17 14:35 01/04/17 01/05/17 01/06/17 05:59 05:59 05:59 Intake Total 1000 860 Output Total 1800 750 Balance -800 110 General: alert and oriented Eyes: EOMI, PERRL OP: CLear CV: RRR Resp: nonlabored respirations on RA Abd: SOft, NT Ext: +2 edema BLE MSK: both legs very painful when attempt to move, no TTP Neuro: CN II-XII grossly intact, no asterixis ICD10 Worksheet Patient Problems: Problems Problem Status Onset Diabetes Acute Hypokalemia Acute Renal failure (ARF), acute on chronic Acute Hypertension Chronic Acute hypokalemia Acute Anasarca Acute Bilateral lower extremity edema Acute CHF (congestive heart failure) Acute CHF with right heart failure Acute Elevated BUN Acute Fluid overload Acute Obesity Acute Peripheral edema Acute Pneumonia Acute Hyperlipidemia Chronic Renal failure, chronic Chronic
[2017-01-05] MEDS: ROSUVASTATIN CALCIUM 20 MG TAB PO SCH (20:38)
[2017-01-06] MEDS: HEPARIN 5,000 UNIT/0.5 ML SYR SC SCH ×3 (05:22→21:17)
[2017-01-06] MEDS: oxyCODONE IR 5 MG TAB PO PRN ×5 (05:46→23:17)
[2017-01-06 05:55] LABS: ANION GAP 10 mEq/L (8-16); CALCIUM 8.3 mg/dL (8.5-10.4); CARBON DIOXIDE 28 mEq/l (22-31); CHLORIDE 97 mEq/L (97-110); CREATININE 1.5 mg/dL (0.7-1.3); GLOMERULAR FILTRATION RATE 47; GLUCOSE 261 mg/dL (70-100); POTASSIUM 3.5 mEq/L (3.5-5.2); SODIUM 135 mEq/L (134-144)
[2017-01-06] MEDS: INSULIN GLARGINE 100 UNITS/ML SYRINGE SC SCH ×2 (08:49→21:15)
[2017-01-06] MEDS: INSULIN LISPRO 100 UNIT/ML SC SCH ×4 (08:50→21:15)
[2017-01-06] MEDS: POTASSIUM CL 20 MEQ TAB PO SCH ×2 (10:03→21:15)
[2017-01-06] MEDS: GABAPENTIN 300 MG CAP PO SCH ×3 (10:04→21:15)
[2017-01-06] MEDS: METOPROLOL TARTRATE 50 MG TAB PO SCH ×2 (10:04→21:15)
[2017-01-06] MEDS: ASPIRIN 81 MG CHEWABLE TAB PO SCH (10:04)
[2017-01-06] MEDS: TAMSULOSIN HCL 0.4 MG CAP PO SCH (10:18)
[2017-01-06] MEDS: SPIRONOLACTONE 50 MG TAB PO SCH (10:37)
--- NOTE | 2017-01-06 10:56 | SOAPPROG ---
DYAN Progress Note Assessment/Plan: Assessment: 1. Obstruction Need to consider overall plan. He will have a hard time getting outpatient urology care. He also states he will not leave with indwelling curiel. 2. 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 We will move this to [place] in the hopes of better follow up. Cr is better. 3. Volume/Lytes He has a high sodium diet, and takes large amounts of diuretics due to edema from pulmonary hypertension. Ideally, he needs a low sodium diet, treatment of ARIEL, and frequent monitoring of lytes. He is now on spironolactone. Will continue monitoring of K. Decrease K dose, follow. Add further diuretics when K stabilized. 4. Disposition Would benefit from SNF. Plan: 01/06/17 10:51 Subjective: Responds, alert, but keeps eyes closed. Objective: Vital Signs Temp Pulse Resp BP Pulse Ox 37.3 C 76 20 141/87 H 93 01/06/17 10:25 01/06/17 08:00 01/06/17 08:00 01/06/17 08:00 01/06/17 08:00 Laboratory Results 01/05/17 04:46 01/06/17 05:30 01/05/17 01/06/17 01/07/17 05:59 05:59 05:59 Intake Total 1000 2260 Output Total 1800 2875 Balance -800 -615 Physical Exam - Physical Exam General Appearance: no apparent distress Respiratory: lungs clear Cardiac/Chest: regular rate, rhythm Male Genitalia: other (curiel) Extremities: pedal edema Neuro/Psych: alert ICD10 Worksheet Patient Problems: Problems Problem Status Onset Diabetes Acute Hypokalemia Acute Renal failure (ARF), acute on chronic Acute Hypertension Chronic Acute hypokalemia Acute Anasarca Acute Bilateral lower extremity edema Acute CHF (congestive heart failure) Acute CHF with right heart failure Acute Elevated BUN Acute Fluid overload Acute Obesity Acute Peripheral edema Acute Pneumonia Acute Hyperlipidemia Chronic Renal failure, chronic Chronic
--- NOTE | 2017-01-06 14:36 | HOSPPROG ---
Hospitalist Progress Note Assessment/Plan: 61-year-old admitted with urinary retention and hypokalemia. He has known severe right-sided CHF that has been treated with high doses of diuretics. Patient is new to me today -Urinary retention - curiel in place, will continue until outpt urology f/u Hypokalemia - in setting of high diuretic and insulin doses. K is up to 3.1 from 2.1 after aggressive replacement, requiring ~200 mEq's per day po/iv. nephrology is holding Bumex and Lasix using only spironolactone and his potassium is now rising. He has a good urine output on spironolactone only CKD - Cr at/below baseline, appreciate renal consult and following care. Right heart failure - He is neither hypoxic nor tachypneic, though is, as always , hypervolemic. Lasix and Metolazone held due to critical hypokalemia. He is actually diuresing quite nicely on Spironolactone monotherapy. Net neg >6L. Will continue Spironolactone for now. Resume Lasix when K a bit more improved. Follow Cr closely. DM - on large doses of U-500 and unable to obtain his home insulin. Discussed with pharmacy. There is no easy conversion to regular insulin based on the difference in absorption. Will up-continue Lantus and continue high dose SSI. ARIEL - he doesn't use cpap, should have this evaluated as outpt Hypertension Hyperlipidemia Full code \ - Disposition: Gentleman will need to go to an SNF for full care. His urologic problem probably cannot be fully resolved here in the hospital and to manage his doses of diuretics and adjust inappropriately will require an SNF. His diabetes is quite difficult to control. In addition is 0 S a should be evaluated and he should have CPAP. Subjective: No complaints other than he is very weak in his lower extremities are quite painful. Lower extremity to so painful he would not tolerate Doppler ultrasound for ruling out a DVT. Today they seem to be improved slightly. Objective: Vital Signs Temp Pulse Resp BP Pulse Ox 36.8 C 69 20 114/68 90 L 01/06/17 11:32 01/06/17 11:32 01/06/17 11:32 01/06/17 11:32 01/06/17 11:32 Laboratory Results 01/05/17 04:46 01/06/17 05:30 01/05/17 01/06/17 01/07/17 05:59 05:59 05:59 Intake Total 1000 2260 Output Total 1800 2875 Balance -800 -615 - Time Spent With Patient Time Spent with Patient: greater than 35 minutes Time Spent with Patient: Greater than 35 minutes spent on this patients care, greater than 50% of time spent counseling, educating, and coordinating care regarding the above mentioned plan. - Pending Discharge Pending Discharge Within 24 Hours: No Pending Discharge Within 48 Hours: No - Physical Exam Constitutional: chronically ill appearing Eyes: PERRL Ears, Nose, Mouth, Throat: moist mucous membranes, hearing normal Cardiovascular: regular rate and rhythym, no murmur, rub, or gallop Respiratory: no respiratory distress, no rales or rhonchi Gastrointestinal: normoactive bowel sounds, soft, non-tender abdomen, other ( Obesity) Genitourinary: no bladder fullness, other ( Curiel is in place) Skin: warm Musculoskeletal: other ( lower extremities are both quite swollen with edema and quite tender to touch. The pain and sensation seems to be more as a peripheral neuropathy then as a pain due to edema. I cannot palpate any cord there is no signs of cellulitis.) Neurologic: AAOx3, CN II-XII Intact Psychiatric: interacting appropriately ICD10 Worksheet Patient Problems: Problems Problem Status Onset Diabetes Acute Hypokalemia Acute Renal failure (ARF), acute on chronic Acute Hypertension Chronic Acute hypokalemia Acute Anasarca Acute Bilateral lower extremity edema Acute CHF (congestive heart failure) Acute CHF with right heart failure Acute Elevated BUN Acute Fluid overload Acute Obesity Acute Peripheral edema Acute Pneumonia Acute Hyperlipidemia Chronic Renal failure, chronic Chronic
[2017-01-06] MEDS: ROSUVASTATIN CALCIUM 20 MG TAB PO SCH (21:16)
[2017-01-07] MEDS: oxyCODONE IR 5 MG TAB PO PRN ×4 (04:50→21:22)
[2017-01-07] MEDS: HEPARIN 5,000 UNIT/0.5 ML SYR SC SCH ×3 (04:50→21:11)
[2017-01-07] MEDS: INSULIN GLARGINE 100 UNITS/ML SYRINGE SC SCH ×2 (09:06→21:11)
[2017-01-07] MEDS: INSULIN LISPRO 100 UNIT/ML SC SCH ×4 (09:07→21:12)
[2017-01-07] MEDS: POTASSIUM CL 20 MEQ TAB PO SCH ×2 (09:51→21:11)
[2017-01-07] MEDS: ASPIRIN 81 MG CHEWABLE TAB PO SCH (09:51)
[2017-01-07] MEDS: TAMSULOSIN HCL 0.4 MG CAP PO SCH (09:51)
[2017-01-07] MEDS: SPIRONOLACTONE 50 MG TAB PO SCH (09:51)
[2017-01-07] MEDS: METOPROLOL TARTRATE 50 MG TAB PO SCH ×2 (09:52→21:11)
[2017-01-07] MEDS: GABAPENTIN 300 MG CAP PO SCH ×3 (09:56→21:12)
[2017-01-07 10:19] LABS: ALANINE AMINOTRANSFERASE 50 IU/L (21-72); ALBUMIN 2.8 g/dL (3.5-5.0); ALKALINE PHOSPHATASE 102 IU/L (38-126); ANION GAP 9 mEq/L (8-16); ASPARTATE AMINOTRANSFERASE 113 IU/L (17-59); CALCIUM 8.1 mg/dL (8.5-10.4); CARBON DIOXIDE 28 mEq/l (22-31); CHLORIDE 95 mEq/L (97-110); CREATININE 1.7 mg/dL (0.7-1.3); GLOMERULAR FILTRATION RATE 41; GLUCOSE 305 mg/dL (70-100); POTASSIUM 3.7 mEq/L (3.5-5.2); SODIUM 132 mEq/L (134-144); TOTAL PROTEIN 5.7 g/dL (6.3-8.2)
[2017-01-07] MEDS ORDERED: ALTEPLASE 2 MG VIAL IVP ONE (10:30)
[2017-01-07] MEDS: ALTEPLASE 2 MG VIAL IVP PRN ×2 (11:48→11:49)
[2017-01-07 11:58] LABS: COLOR YELLOW; LEUKOCYTE ESTERASE,URINE 2+ (NEGATIVE); NITRITE,URINE NEGATIVE (NEGATIVE)
[2017-01-07 12:03] LABS: BACTERIA TRACE /hpf (NONE SEEN); MUCUS 2+ /lpf (NONE-1+); RBC,URINE 50-182 /hpf (0-3); WBC,URINE 50-182 /hpf (0-3)
--- NOTE | 2017-01-07 12:04 | SOAPPROG ---
SOAP Progress Note Assessment/Plan: Assessment: 1. CKD III. Creat below baseline. Follow with diuresis. 2. PIZANO. s/p curiel. Needs prostate eval, will have here today + outpatient urology f/u. Continue curiel catheter. 3. RHF. Edema reasonable. Continue diuresis. 4. Hypokalemia. Started aldactone. Potassium gradually improving. Resume bumex at lower dose. 5. Peripheral neuropathy Neurontin increased from his baseline of BID to 300mg TID. Plan: 01/07/17 12:00 01/07/17 12:05 Subjective: C/o severe bilat leg pain, from feet to knees, pins and needles. Objective: Vital Signs Temp Pulse Resp BP Pulse Ox 37.1 C 93 22 H 106/76 95 01/07/17 08:00 01/07/17 09:52 01/07/17 08:00 01/07/17 09:52 01/07/17 08:00 Laboratory Results 01/07/17 09:30 01/07/17 09:30 01/06/17 01/07/17 01/08/17 05:59 05:59 05:59 Intake Total 2260 1860 Output Total 2875 2150 Balance -615 -290 Sleepy In bed. Very uncomfortable RRR, no m/g/r CTAB Abdom soft, nt 1+ ankle, no sacral edema ICD10 Worksheet Patient Problems: Problems Problem Status Onset Peripheral edema Acute Hypertension Chronic Hyperlipidemia Chronic Diabetes Acute CHF with right heart failure Acute Renal failure, chronic Chronic Pneumonia Acute Hypokalemia Acute Renal failure (ARF), acute on chronic Acute Fluid overload Acute Bilateral lower extremity edema Acute Acute hypokalemia Acute CHF (congestive heart failure) Acute Anasarca Acute Elevated BUN Acute Obesity Acute
[2017-01-07] MEDS: BUMETANIDE 2 MG TAB PO SCH ×2 (13:18→21:12)
[2017-01-07 13:45] LABS: % IMMATURE GRANULYOCYTES 0.9 % (0.0-1.1); ABSOLUTE IMMATURE GRANULOCYTES 0.15 10^3/uL (0.00-0.10); ADD DIFF? NO; ADD MORPH? NO; ADD SCAN? NO; ATYPICAL LYMPHOCYTE FLAG 0 (0-99); FRAGMENT RBC FLAG 0 (0-99); HEMATOCRIT 48.2 % (40.0-51.0); HEMOGLOBIN 15.6 g/dL (13.7-17.5); LEFT SHIFT FLG 30 (0-99); LIPEMIA HEMOLYSIS FLAG 80 (0-99); MEAN CELL HEMOGLOBIN 27.9 pg (27.9-34.1); MEAN CELL HEMOGLOBIN CONCENTR. 32.4 g/dL (32.4-36.7); MEAN CELL VOLUME 86.2 fL (81.5-99.8); MEAN PLATELET VOLUME 11.3 fL (8.7-11.7); PLATELET CLUMPS FLAG 0 (0-99); PLATELET COUNT 271 10^3/uL (150-400); RED BLOOD CELL COUNT 5.59 10^6/uL (4.40-6.38); RED CELL DISTRIBUTION WIDTH 17.3 % (11.5-15.2)
--- NOTE | 2017-01-07 15:03 | HOSPPROG ---
Hospitalist Progress Note Assessment/Plan: 61-year-old admitted with urinary retention and hypokalemia. He has known severe right-sided CHF that has been treated with high doses of diuretics. Today he is less cooperative will not, will not get out of bed, though he does continue to take his medications. He has never required a Gallo catheter before and had urinary obstruction. In addition he has a new problem of a persistent leukocytosis. -Urinary retention - Rectal exam showed a normal size prostate without masses but with patient reports as calcium lumps on his scrotum. Today I have spoke with Dr. Osito Sanchez who will see the patient in consultation. - New and persistent leukocytosis without a fever: Patient has no complaints of shortness of breath cough or abdominal pain. His exam of the abdomen does show some abdominal tenderness. The abdominal CT done on admission did not show any pathology except for splenomegaly and steatosis of the liver. plan today is to order urine culture and blood cultures, follow the cultures, and review the results of the Urology consultation. 1 possibility is a DVT although he has no pulmonary complaints. He does complain of severe tenderness on palpation of his lower extremities out of proportion to his degree of edema. He refused the previous duplex ultrasound of his legs because of this pain. I am going to reorder that study and encourage the patient to assist in his care. - Severe right-sided CHF with extensive fluid overload. We are continuing his diuresis with spironolactone and have reduced his potassium replacement of his potassium is nearly normal. He continues to have hyponatremia secondary to the diuresis. Per Nephrology will continue his diuresis as planned. - Severe protein caloric malnutrition: Albumin 2.8. However order calorie counts. The patient is not eating much. - Depression: The patient is minimally helpful with his own care and it is possible he was not taking his medications at [facility]. I have discussed this with the patient and if he does not improve his cooperation then he will need to be discharged to an SNF. At this time he has not been out of the bed and I have asked him to begin to get out of bed walking assist in his own care. Today he reports that he just got news that his brother has . This may be a cause for his depression though it cannot extensively interfere with our medical care. -CKD - Cr at/below baseline, appreciate renal consult and following care. -DM - on large doses of U-500 and unable to obtain his home insulin. Discussed with pharmacy. There is no easy conversion to regular insulin based on the difference in absorption. Will up-continue Lantus and continue high dose SSI. -ARIEL - he doesn't use cpap, should have this evaluated as outpt -Hypertension -Hyperlipidemia -Full code \ - Disposition: Gentleman will need to go to an SNF for full care. Urology will see the gentleman in consultation today or tomorrow. Follow his WBC and results of his cultures as they are at this time is no direct reason for his acute leukocytosis. If that persists I would suggest a CTA of the abdomen and pelvis with oral and IV contrast. Review his chest x-ray shows that that is clearly has no pulmonary findings. Subjective: Reports no complaints of nausea vomiting chest pain shortness of breath or abdominal pain. He denies dysuria. Patient reports that he has not previously needed a Gallo catheter for urination. Denies a feeling of dysuria or back pain. Objective: Vital Signs Temp Pulse Resp BP Pulse Ox 37.1 C 93 22 H 106/76 95 01/07/17 08:00 01/07/17 09:52 01/07/17 08:00 01/07/17 09:52 01/07/17 08:00 Laboratory Results 01/07/17 12:45 01/07/17 09:30 01/06/17 01/07/17 01/08/17 05:59 05:59 05:59 Intake Total 2260 1860 Output Total 2875 2150 850 Balance -473 -290 -850 - Time Spent With Patient Time Spent with Patient: greater than 35 minutes Time Spent with Patient: Greater than 35 minutes spent on this patients care, greater than 50% of time spent counseling, educating, and coordinating care regarding the above mentioned plan. - Pending Discharge Pending Discharge Within 24 Hours: No Pending Discharge Within 48 Hours: No - Physical Exam Constitutional: no apparent distress, chronically ill appearing Eyes: PERRL, anicteric sclera Ears, Nose, Mouth, Throat: moist mucous membranes, hearing normal Cardiovascular: regular rate and rhythym, no murmur, rub, or gallop Respiratory: no respiratory distress, no rales or rhonchi, clear to auscultation Gastrointestinal: other ( Obese. Some tenderness overall but no specific area of repeat tenderness can be found. His right upper quadrant and left upper quadrant are nontender as is the left lower quadrant.) Genitourinary: no bladder fullness Skin: warm Musculoskeletal: generalized weakness, other ( Reports extreme tenderness on palpation of his lower extremities bilaterally.) Neurologic: AAOx3, CN II-XII Intact Psychiatric: flat affect, poor insight, poor judgement ICD10 Worksheet Patient Problems: Problems Problem Status Onset Diabetes Acute Hypokalemia Acute Renal failure (ARF), acute on chronic Acute Hypertension Chronic Acute hypokalemia Acute Anasarca Acute Bilateral lower extremity edema Acute CHF (congestive heart failure) Acute CHF with right heart failure Acute Elevated BUN Acute Fluid overload Acute Obesity Acute Peripheral edema Acute Pneumonia Acute Hyperlipidemia Chronic Renal failure, chronic Chronic
[2017-01-07 16:51] LABS: HEMOGLOBIN A1C 8.2 % (4.0-6.0)
[2017-01-07] MEDS: ROSUVASTATIN CALCIUM 20 MG TAB PO SCH (21:12)
[2017-01-08] MEDS: oxyCODONE IR 5 MG TAB PO PRN ×2 (02:34→05:59)
[2017-01-08 04:55] LABS: % IMMATURE GRANULYOCYTES 0.7 % (0.0-1.1); ABSOLUTE IMMATURE GRANULOCYTES 0.12 10^3/uL (0.00-0.10); ADD DIFF? NO; ADD MORPH? NO; ADD SCAN? NO; ATYPICAL LYMPHOCYTE FLAG 0 (0-99); FRAGMENT RBC FLAG 0 (0-99); HEMATOCRIT 48.8 % (40.0-51.0); HEMOGLOBIN 15.7 g/dL (13.7-17.5); LEFT SHIFT FLG 20 (0-99); LIPEMIA HEMOLYSIS FLAG 80 (0-99); MEAN CELL HEMOGLOBIN 27.6 pg (27.9-34.1); MEAN CELL HEMOGLOBIN CONCENTR. 32.2 g/dL (32.4-36.7); MEAN CELL VOLUME 85.9 fL (81.5-99.8); MEAN PLATELET VOLUME 10.7 fL (8.7-11.7); PLATELET CLUMPS FLAG 0 (0-99); PLATELET COUNT 269 10^3/uL (150-400); RED BLOOD CELL COUNT 5.68 10^6/uL (4.40-6.38); RED CELL DISTRIBUTION WIDTH 16.8 % (11.5-15.2)
[2017-01-08] MEDS: HEPARIN 5,000 UNIT/0.5 ML SYR SC SCH ×3 (05:14→21:58)
[2017-01-08 06:18] LABS: ALANINE AMINOTRANSFERASE 48 IU/L (21-72); ALBUMIN 2.9 g/dL (3.5-5.0); ALKALINE PHOSPHATASE 131 IU/L (38-126); ANION GAP 15 mEq/L (8-16); ASPARTATE AMINOTRANSFERASE 101 IU/L (17-59); BILIRUBIN,TOTAL 2.4 mg/dL (0.1-1.4); CALCIUM 8.4 mg/dL (8.5-10.4); CARBON DIOXIDE 26 mEq/l (22-31); CHLORIDE 92 mEq/L (97-110); CREATININE 1.9 mg/dL (0.7-1.3); GLOMERULAR FILTRATION RATE 36; GLUCOSE 237 mg/dL (70-100); POTASSIUM 3.5 mEq/L (3.5-5.2); SODIUM 133 mEq/L (134-144); TOTAL PROTEIN 5.9 g/dL (6.3-8.2)
[2017-01-08 06:29] LABS: BILIRUBIN-CONJUGATED 0.9 mg/dL (0.0-0.5); BILIRUBIN-UNCONJUGATED 1.5 mg/dL (0.0-1.1)
--- NOTE | 2017-01-08 08:26 | SOAPPROG ---
SOAP Progress Note Assessment/Plan: Assessment: Urinary retention Acute Per pt care log PVR of 28 ml this AM, creat at 1.9 -- below baseline, consider timed voiding at commode or toilet in upright position. Plan: Cath out and follow up in office. 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 He has had minimal LUTS prior to hospitalization Objective: Vital Signs Temp Pulse Resp BP Pulse Ox 36.7 C 85 24 H 130/97 H 93 01/07/17 23:20 01/07/17 23:20 01/07/17 23:20 01/07/17 23:20 01/07/17 23:20 Laboratory Results 01/08/17 04:30 01/08/17 04:30 01/07/17 01/08/17 01/09/17 05:59 05:59 05:59 Intake Total 1860 Output Total 2150 851 Balance -290 -851 CAT scan reviewed and calcified vasa most likely related to DM, bladder wall is not thickened and prostate is not enlarged. Mild left hydro to prox ureter and right ureter is normal. chronic renal dz by image. Physical Exam - Physical Exam General Appearance: alert Respiratory: No respiratory distress Abdomen: non-tender, other (obese) Back: No CVA tenderness Skin: warm/dry Extremities: No calf tenderness Neuro/Psych: oriented x 3 ICD10 Worksheet Patient Problems: Problems Problem Status Onset Diabetes Acute Hypokalemia Acute Renal failure (ARF), acute on chronic Acute Urinary retention Acute Hypertension Chronic Acute hypokalemia Acute Anasarca Acute Bilateral lower extremity edema Acute CHF (congestive heart failure) Acute CHF with right heart failure Acute Elevated BUN Acute Fluid overload Acute Obesity Acute Peripheral edema Acute Pneumonia Acute Hyperlipidemia Chronic Renal failure, chronic Chronic - ICD10 Problem Qualifiers (1) Urinary retention
[2017-01-08] MEDS: INSULIN GLARGINE 100 UNITS/ML SYRINGE SC SCH ×2 (09:54→22:08)
[2017-01-08] MEDS: BUMETANIDE 2 MG TAB PO SCH ×2 (09:55→21:59)
[2017-01-08] MEDS: INSULIN LISPRO 100 UNIT/ML SC SCH ×4 (09:55→21:59)
[2017-01-08] MEDS: SPIRONOLACTONE 50 MG TAB PO SCH (09:56)
[2017-01-08] MEDS: METOPROLOL TARTRATE 50 MG TAB PO SCH ×2 (09:56→22:00)
[2017-01-08] MEDS: ASPIRIN 81 MG CHEWABLE TAB PO SCH (09:56)
[2017-01-08] MEDS: TAMSULOSIN HCL 0.4 MG CAP PO SCH (09:56)
[2017-01-08] MEDS: GABAPENTIN 300 MG CAP PO SCH ×3 (09:56→22:00)
[2017-01-08] MEDS: POTASSIUM CL 20 MEQ TAB PO SCH ×3 (09:56→21:59)
--- NOTE | 2017-01-08 12:15 | SOAPPROG ---
SOAP Progress Note Assessment/Plan: Assessment/Plan: CKD stage IV: Cr currently better than baseline at 1.9, is slowly uptrending likely due to re-initiation of diuretics. - Will continue to monitor. - Avoid nephrotoxins. Hypokalemia: chronic, likely from diuretic use, pt on Bumex and metolazone at home. K up to 3.5 today. - Will change po replacement to KCl 20meq po TID today. - Pt getting spironolactone. - Will continue to monitor. Hypervolemia: chronic, likely due to CHF. Giving spironolactone and Bumex now, will monitor. Subjective: No acute events overnight. Pt notes that he still is having a lot of pain in his legs although a little better with increase in gabapentin, US with no DVT. This am, he was asking to be medically euthanized, has agreed to a psychiatry consult today. Objective: Vital Signs Temp Pulse Resp BP Pulse Ox 36.7 C 90 20 116/96 H 89 L 01/08/17 08:30 01/08/17 09:56 01/08/17 08:30 01/08/17 09:56 01/08/17 08:30 Laboratory Results 01/08/17 04:30 01/08/17 04:30 01/07/17 01/08/17 01/09/17 05:59 05:59 05:59 Intake Total 1860 350 Output Total 2150 851 Balance -290 -851 350 General: alert and oriented, no acute distress Eyes; EOMI, PERRL OP: Clear CV: RRR REsp: nonlabored respiraitons on NC Abd; SOft, NT, obese Ext: +1 edema BLE Neuro: CN II-XII grossly intact, no asterixis Psych: cooperative, blunted affect ICD10 Worksheet Patient Problems: Problems Problem Status Onset Diabetes Acute Hypokalemia Acute Renal failure (ARF), acute on chronic Acute Urinary retention Acute Hypertension Chronic Acute hypokalemia Acute Anasarca Acute Bilateral lower extremity edema Acute CHF (congestive heart failure) Acute CHF with right heart failure Acute Elevated BUN Acute Fluid overload Acute Obesity Acute Peripheral edema Acute Pneumonia Acute Hyperlipidemia Chronic Renal failure, chronic Chronic
--- NOTE | 2017-01-08 13:23 | HOSPPROG ---
Hospitalist Progress Note Assessment/Plan: Assessment/Plan: 61 yo M p/w acute urinary retention and hypokalemia, c/b acute diastolic CHF, suspected UTI, and severely depressed mood # Acute Urinary retention. Nl size prostate without masses on exam - appreciated Dr. Betancur's consultation - patient currently voiding well w/ condom-cath, so does not appear to currently be obstructed - cont flomax # Suspected UTI. Evidenced by positive UA, urinary symptoms including frequency and dysuria, as well as worsening leukocytosis - start CTX, D1/7 (complicated by definition in a male) - UCx pending # Acute diastolic CHF. New problem to this provider, further w/u indicated. Evidenced by interstitial markings on CXR (personally interpreted) and grossly volume overloaded LE, potentially has right sided component as well - reviewed outside records (Echo 02/15/16, demonstrating diastolic dysfunction, normal LV systolic fxn, normal RV fxn, normal RVSP) - get repeat Echo when patient is amenable - cont bumex 2mg bid w/ aldactone 50mg daily - cont monitoring weights and UOP via condom-cath # Hypokalemia. Acute, presumably 2/2 diuresis and large volume of distribution - d/w Dr. Carlin, advises we hold on additional K at this time w/ Cr 1.9 and on aldactone - cont to monitor # CKD Stage III. Baseline Cr around 2, lower than baseline indicating hypervolemia, cont to monitor # Depressed mood. Acute on chronic, patient expressing that he would like to pursue medical "euthanasia" - reports depressed mood x 1 year, worsening w/ stress related to his neuropathy , edema, diabetes - patient had a sibling pass away within past week - patient denies he has a mental health diagnosis, reports he does not take Rx, but he lives at [facility] - patient denies active plan for suicide, but does consider himself a potential risk to self if discharged - hold on M1 at this time, but will place if patient begins to express he may be imminent danger to self presently - getting psych consult today # Severe protein caloric malnutrition. Poor intake, Albumin 2.8, dietary consult # Morbid obesity. BMI 50, increased risk morbidity/mortality # DM. On large doses of U-500 and unable to obtain his home insulin - Will up-continue Lantus and continue high dose SSI. # ARIEL. Not on CPAP, needs outpt f/u Diet. As sumi PPx. High risk, hep SC Code. Full Dispo. ADD uncertain, patient not medically or psychologically safe for discharge at this time Subjective: patient reporting that he would like to be euthanized, he is suspicious of staff, he is feeling depressed Objective: Vital Signs Temp Pulse Resp BP Pulse Ox 36.7 C 90 20 116/96 H 89 L 01/08/17 08:30 01/08/17 09:56 01/08/17 08:30 01/08/17 09:56 01/08/17 08:30 Laboratory Results 01/08/17 04:30 01/08/17 04:30 01/07/17 01/08/17 01/09/17 05:59 05:59 05:59 Intake Total 1860 350 Output Total 2150 851 Balance -290 -851 350 - Time Spent With Patient Time Spent with Patient: greater than 35 minutes Time Spent with Patient: Greater than 35 minutes spent on this patients care, greater than 50% of time spent counseling, educating, and coordinating care regarding the above mentioned plan. - Physical Exam Constitutional: chronically ill appearing, obese, uncomfortable Cardiovascular: edema ( 2+ bilateral lower extremity edema) Respiratory: no respiratory distress Skin: other (ruborous bilateral lower extremities) Neurologic: AAOx3, weakness ( motor strength 3/5 bilateral lower extremities) Psychiatric: not encephalopathic, anxious, depressed, flat affect, suicidal ideation ( passive, no active plan), agitated ICD10 Worksheet Patient Problems: Problems Problem Status Onset Diabetes Acute Hypokalemia Acute Renal failure (ARF), acute on chronic Acute Urinary retention Acute Hypertension Chronic Acute hypokalemia Acute Anasarca Acute Bilateral lower extremity edema Acute CHF (congestive heart failure) Acute CHF with right heart failure Acute Elevated BUN Acute Fluid overload Acute Obesity Acute Peripheral edema Acute Pneumonia Acute Hyperlipidemia Chronic Renal failure, chronic Chronic
--- NOTE | 2017-01-08 18:15 | GCON ---
[f rep st] CONSULTATION DATE OF CONSULTATION: 01/08/2017 HISTORY OF PRESENT ILLNESS: I have been asked to see this gentleman because of urinary issue of ret ention. At the present time, it is well known that he has diabetes and neuropathy associated with i t. 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 His prostate is small. Bladder was distended on the CT scan, but he had no wa ll thickness, and he had [id number] hydronephrosis of the left kidney; I did not really apprec iate significant hydronephrosis of the right. He had no suggestion of stones, masses, or malignancy . 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 At the present time would defer that because the hospital does not have the ability to do the urodynamics, and I think cystoscopy would be unnecessary at this time. So by history, he was admit nahed because of hypokalemia and chronic kidney disease. He had a baseline creatinine of 2.2 to 2.6. His creatinine today was 1.9. He is hypokalemic because of metolazone and Bumex for chronic edema. ALLERGIES: Sulfa. HOME MEDICATIONS: Have been reviewed: The Crestor, Motrin, Humulin, , Zaroxolyn, Lopres sor, oxycodone. SURGICAL HISTORY: Noncontributory. SOCIAL HISTORY: Nonsmoker. REVIEW OF SYSTEMS: Have been reviewed. PHYSICAL EXAMINATION: GENERAL: He is oriented x3. Answers questions appropriately. EYES: Normal with no icterus. HEART: Regular rate and rhythm. ABDOMEN: Obesity noted. No rebound or guardin g. He has no flank pain. Catheter is in place draining well. EXTREMITIES: Lower extremities have bilateral peripheral edema. NEUROLOGIC: Oriented x3. PSYCHIATRIC: He is interacting appropriate ly but at my visit there is a psychiatric assessment to begin. At the present time, I would leave his catheter in place until tomorrow and then remove it, and try to have him void in either a sitting or standing position; and as an outpatient, we would be happy t o assess his lower urinary tract if it is problematic. He has had a catheterized urine specimen for culture that grew normal urogenital skin microbiota 30,000 to 40,000 per mL. Blood cultures are pe nding from 01/07. He has had the leukocytosis that went from 15.8 on the to 17.3 on the . T he creatinine, as noted, was 1.9 on 01/08. At the present time, he is in agreement with the plan, a nd I will see him tomorrow in followup to address catheter placement and voiding effort. I tried to answer his questions to the best of my ability, and he seemed to understand the process. /[id number]/MODL
[2017-01-08] MEDS: ROSUVASTATIN CALCIUM 20 MG TAB PO SCH (21:59)
[2017-01-09] MEDS: HEPARIN 5,000 UNIT/0.5 ML SYR SC SCH ×3 (05:38→22:27)
[2017-01-09 06:07] LABS: % IMMATURE GRANULYOCYTES 0.8 % (0.0-1.1); ABSOLUTE IMMATURE GRANULOCYTES 0.13 10^3/uL (0.00-0.10); ADD DIFF? NO; ADD MORPH? NO; ADD SCAN? NO; ATYPICAL LYMPHOCYTE FLAG 0 (0-99); FRAGMENT RBC FLAG 0 (0-99); HEMATOCRIT 47.7 % (40.0-51.0); HEMOGLOBIN 15.6 g/dL (13.7-17.5); LEFT SHIFT FLG 10 (0-99); LIPEMIA HEMOLYSIS FLAG 80 (0-99); MEAN CELL HEMOGLOBIN 27.7 pg (27.9-34.1); MEAN CELL HEMOGLOBIN CONCENTR. 32.7 g/dL (32.4-36.7); MEAN CELL VOLUME 84.7 fL (81.5-99.8); PLATELET CLUMPS FLAG 0 (0-99); PLATELET COUNT 268 10^3/uL (150-400); RED BLOOD CELL COUNT 5.63 10^6/uL (4.40-6.38)
[2017-01-09 06:35] LABS: ALANINE AMINOTRANSFERASE 60 IU/L (21-72); ALBUMIN 2.9 g/dL (3.5-5.0); ALKALINE PHOSPHATASE 149 IU/L (38-126); ANION GAP 13 mEq/L (8-16); ASPARTATE AMINOTRANSFERASE 74 IU/L (17-59); BILIRUBIN,TOTAL 1.6 mg/dL (0.1-1.4); CALCIUM 8.4 mg/dL (8.5-10.4); CARBON DIOXIDE 29 mEq/l (22-31); CHLORIDE 92 mEq/L (97-110); CREATININE 1.8 mg/dL (0.7-1.3); GLOMERULAR FILTRATION RATE 38; GLUCOSE 248 mg/dL (70-100); POTASSIUM 3.5 mEq/L (3.5-5.2); SODIUM 134 mEq/L (134-144); TOTAL PROTEIN 5.8 g/dL (6.3-8.2)
[2017-01-09] MEDS: POTASSIUM CL 20 MEQ TAB PO SCH ×3 (09:00→22:26)
[2017-01-09] MEDS: INSULIN LISPRO 100 UNIT/ML SC SCH ×4 (09:01→22:27)
[2017-01-09] MEDS: GABAPENTIN 300 MG CAP PO SCH ×3 (09:01→22:27)
[2017-01-09] MEDS: TAMSULOSIN HCL 0.4 MG CAP PO SCH (09:01)
[2017-01-09] MEDS: BUMETANIDE 2 MG TAB PO SCH (09:01)
[2017-01-09] MEDS: ASPIRIN 81 MG CHEWABLE TAB PO SCH (09:01)
[2017-01-09] MEDS: SPIRONOLACTONE 50 MG TAB PO SCH (09:02)
[2017-01-09] MEDS: INSULIN GLARGINE 100 UNITS/ML SYRINGE SC SCH ×2 (09:23→22:27)
[2017-01-09] MEDS: METOPROLOL TARTRATE 50 MG TAB PO SCH ×2 (09:26→22:27)
--- NOTE | 2017-01-09 10:10 | ECHO ---
[id number] + + [id number] : : [place] [address] : : [phone] + + Adult Echocardiographic Report + ---------+ :Name: DONNA ABRAHAM KStudy Date: 01/09/2017 08:45 AM : : Hospital Admission Number: [id number] Nallely dill: 370: :: 1955 Gender: Male Height: 72 i n : :Age: 61 yrs Race: WH Weight: 375 lb : :Reason For Study: Eval LV Fx : : BSA: 2.8 met ers2 : :History: CHF, Hypokalemia, Obesity : + ---------+ MMode/2D Measurements \T\ Calculations IVSd: 1.0 cm LVIDd: 4.8 cm FS: 36.8 % Ao root diam: 3.1 cm LVPWd: 1.2 cm LVIDs: 3.0 cm EDV(Teich): 105.0 ml ACS: 1.5 cm ESV(Teich): 35.1 ml EF(Teich): 66.6 % Normal Measurement Values: + + :LVIDd (3.5-5.7cm) IVSd (0.6-1.1cm) LVPWd (0.6-1.1cm) Aortic Root (2.0-3.7cm)Left Atrium (1.5-4.0cm): :LV Vol(d) (76-115ml) LV Vol(s) (29-48ml) Ejec Fraction (50-65%)PV Jeremy (0.6- 1.2m/s) TV Jeremy (0.4-1.0m/s) : :MV E Jeremy (0.8-1.0m/s)MV A Jeremy (0.3-1.0m/s)LVOT Jeremy (0.7-1.2m/s) Asc Ao Jeremy ( 0.9-1.8m/s) : + + Doppler Measurements \T\ Calculations MV E max jeremy: Ao V2 max: LV V1 max: PA V2 max: 49.4 cm/sec 104.5 cm/sec 57.8 cm/sec 74.7 cm/sec MV A max jeremy: Ao max P.4 mmHg LV V1 max PG: PA max P.8 cm/sec 1.3 mmHg 2.2 mmHg MV E/A: 0.55 Left Ventricle The left ventricle is normal in size. There is normal left ventricular wall thickness. The left ventricular ejection fraction is normal. It appears that the rhythm is atrial fibrillation. There is Doppler evidence for diastolic dysfunction. No regional wall motion abnormalities noted. Right Ventricle The right ventricle is normal in size and function. Atria The left atrial size is normal. Right atrial size is normal. Mitral Valve The mitral valve is normal in structure and function. There is no mitral valve stenosis. There is no mitral regurgitation noted. Tricuspid Valve Normal tricuspid valve. There is trace tricuspid regurgitation. Aortic Valve The aortic valve is normal in structure and function. There is no aortic stenosis. There is no aortic insufficiency. Pulmonic Valve The pulmonic valve is normal in structure and function. There is no pulmonic valvular regurgitation. Great Vessels The aortic root is normal size. Pericardium/Pleural There is no pericardial effusion. Conclusion A complete two-dimensional transthoracic echocardiogram was performed (2D, M-mode, Doppler and color flow Doppler). The study was technically difficult. The study was technically limited. The left ventricular ejection fraction is normal. It appears that the rhythm is atrial fibrillation. No regional wall motion abnormalities noted. There is Doppler evidence for diastolic dysfunction. The left atrial size is normal. Right atrial size is normal. The mitral valve is normal in structure and function. Normal tricuspid valve There is trace tricuspid regurgitation. The aortic valve is normal in structure and function. The pulmonic valve is normal in structure and function. There is no pericardial effusion. Final Reading Physician: Janelle Zepeda signed on 01/09/2017 10:09 AM Ordering Physician: Joo Covarrubias Performed By: Chapo Mckeon, ANIKACS
[2017-01-09] MEDS ORDERED: POTASSIUM CL 20 MEQ TAB PO ONE (13:19)
--- NOTE | 2017-01-09 13:23 | SOAPPROG ---
SOAP Progress Note Assessment/Plan: Assessment:Plan: CKD-creatinine 1.8 -near baseline Edema-looks good -CPM Hypokalemia-on replacement -better today -will give extra dose of KCl 40mEq x 1 01/09/17 13:20 Subjective: stable overnite Objective: Vital Signs Temp Pulse Resp BP Pulse Ox 37.0 C 86 18 118/81 H 92 01/09/17 07:27 01/09/17 09:26 01/09/17 07:27 01/09/17 09:26 01/09/17 07:27 Microbiology 01/07/17 11:05 Urine Culture - Final Urine,Catheterized One [place] Type Laboratory Results 01/09/17 05:30 01/09/17 05:30 01/08/17 01/09/17 01/10/17 05:59 05:59 05:59 Intake Total 2140 Output Total 806 6680 Balance -851 -806 Physical Exam - Physical Exam General Appearance: WD/WN, alert, no apparent distress EENT: normal ENT inspection Neck: normal inspection Respiratory: lungs clear, normal breath sounds, No respiratory distress Cardiac/Chest: regular rate, rhythm Abdomen: normal bowel sounds, other (obese) Extremities: swelling (trace) ICD10 Worksheet Patient Problems: Problems Problem Status Onset Diabetes Acute Hypokalemia Acute Renal failure (ARF), acute on chronic Acute Urinary retention Acute Hypertension Chronic Acute hypokalemia Acute Anasarca Acute Bilateral lower extremity edema Acute CHF (congestive heart failure) Acute CHF with right heart failure Acute Elevated BUN Acute Fluid overload Acute Obesity Acute Peripheral edema Acute Pneumonia Acute Hyperlipidemia Chronic Renal failure, chronic Chronic
[2017-01-09] MEDS ORDERED: BISACODYL 10 MG SUPP PR PRN (14:20)
[2017-01-09] MEDS ORDERED: LACTULOSE 20 GM/30 ML UDCUP PO PRN (14:20)
--- NOTE | 2017-01-09 14:40 | HOSPPROG ---
Hospitalist Progress Note Assessment/Plan: Assessment/Plan: 61 yo M p/w acute urinary retention and hypokalemia, c/b acute diastolic CHF, suspected UTI, and severely depressed mood # Acute Urinary retention. Nl size prostate without masses on exam - d/w Dr. Betancur, recommends ongoing condom-cath, outpt urodynamic studies - cont flomax # Suspected UTI. Evidenced by positive UA, urinary symptoms including frequency and dysuria, as well as leukocytosis - start CTX, D2/7 (complicated by definition in a male) - UCx pending # Acute diastolic CHF. Evidenced by interstitial markings on CXR (personally interpreted) and grossly volume overloaded LE - Echo w/ diastolic dysfunction, normal RV, no focal wall motion abnl - increase to bumex 2mg IV bid w/ aldactone 50mg daily - cont monitoring weights and UOP via condom-cath # Atrial fibrillation. Acute, new problem, further w/u indicated. Present on tele (personally interpreted) - reviewed outside records including cardiology consultation by Dr. Rodriguez in 2014 which had no mention of Afib, presume this to be new diagnosis - cont on metop bid, currently rate controlled - no significant valvulopathy - get EKG to compare conduction to prior - cont ASA, will discuss systemic anticoagulation w/ patient # Coag negative staph. 1/2 bottles, suspect contaminent, monitor BCx # Hypokalemia. Acute, presumably 2/2 diuresis and large volume of distribution - give K 20mEq w/ increased diuresis # CKD Stage III. Baseline Cr around 2, lower than baseline indicating hypervolemia, cont to monitor # Depressed mood. Acute on chronic, d/w Dr. Moralez, agree patient does not warrant M1 as it was more situational and he was stressed about pain control, now better managed # Severe protein caloric malnutrition. Poor intake, Albumin 2.8, dietary consult # Morbid obesity. BMI 50, increased risk morbidity/mortality # DM. On large doses of U-500 and unable to obtain his home insulin - Will up-continue Lantus and continue high dose SSI. # Chronic pain w/ continuous opiate dependency. Poorly managed pain on oxy IR - adjusted to PO/IV morphine w/ good response - start bowel regimen # ARIEL. Not on CPAP, needs outpt f/u Diet. As sumi PPx. High risk, hep SC Code. Full Dispo. ADD uncertain, patient not medically safe for discharge at this time Subjective: Patient reports his mood is improved now that he has spoken with his sister and brother Objective: Vital Signs Temp Pulse Resp BP Pulse Ox 37.0 C 86 18 118/81 H 92 01/09/17 07:27 01/09/17 09:26 01/09/17 07:27 01/09/17 09:26 01/09/17 07:27 Microbiology 01/07/17 17:52 Blood Panel (PCR) - Final Blood Staph Coagulase Negative 01/07/17 11:05 Urine Culture - Final Urine,Catheterized One [place] Type Laboratory Results 01/09/17 05:30 01/09/17 05:30 01/08/17 01/09/17 01/10/17 05:59 05:59 05:59 Intake Total 2140 Output Total 854 6965 Balance -594 -613 - Physical Exam Constitutional: no apparent distress, chronically ill appearing, obese, uncomfortable Eyes: PERRL, anicteric sclera, EOMI Cardiovascular: systolic murmur (2/6 at the apex), irregularly irregular, edema (2+ bilateral lower extremities), No tachycardia Respiratory: no respiratory distress, no rales or rhonchi, clear to auscultation Gastrointestinal: normoactive bowel sounds, soft, non-tender abdomen, no palpable masses, other (Negative Hernadez sign) Skin: other (Petechiae bilateral lower extremities) Neurologic: AAOx3, sensation intact bilaterally (Hyper paresthesias bilateral lower extremity), weakness (Motor strength 3/5 bilateral lower extremities) Psychiatric: not encephalopathic, thought process linear, depressed, flat affect ICD10 Worksheet Patient Problems: Problems Problem Status Onset Diabetes Acute Hypokalemia Acute Renal failure (ARF), acute on chronic Acute Urinary retention Acute Hypertension Chronic Acute hypokalemia Acute Anasarca Acute Bilateral lower extremity edema Acute CHF (congestive heart failure) Acute CHF with right heart failure Acute Elevated BUN Acute Fluid overload Acute Obesity Acute Peripheral edema Acute Pneumonia Acute Hyperlipidemia Chronic Renal failure, chronic Chronic
--- NOTE | 2017-01-09 15:33 | CPEKG ---
Heart Rate: 82 RR Interval: 732 QRSD Interval: 144 QT Interval: 412 QTC Interval: 482 QRS Abrams: -59 T Wave Abrams: 101 EKG Severity - ABNORMAL ECG - EKG Impression: ATRIAL FIBRILLATION, V-RATE 68-99 EKG Impression: LEFT BUNDLE BRANCH BLOCK Electronically Signed By: Gaston Carlin 09-Jan-2017 15:59:59
[2017-01-09] MEDS: POLYETHYLENE GLYCOL 3350 17 GM PKT PO PRN (15:53)
[2017-01-09] MEDS: BUMETANIDE 1 MG/4 ML VIAL IVP SCH (15:53)
--- NOTE | 2017-01-09 17:33 | BCON ---
[f rep ] BEHAVIORAL HEALTH CONSULTATION DATE OF CONSULTATION: 01/08/2017 REFERRING PHYSICIAN: Joo Covarrubias MD REASON FOR CONSULTATION: Evaluate suicidality. HISTORY OF PRESENT ILLNESS: The patient is a 61-year-old, male, morbidly obese, with multiple medical problems including hypertension, chronic kidney disease, poorly controlled diabetes mellitus, bilateral lower extremity edema, and right heart failure who presented with acute urinary retention and hypokalemia. Also was given treatment for presumed urinary tract infection. Patient was being treated for his acute medical issues, a which included evaluation of his increased bilateral lower extremity edema which were also very painful, and he reportedly was unable to tolerate an ultrasound of his legs due to pain. Additionally, on 01/07/2017, he reported having received news that one brother had . On evaluation by hospitalist on 01/08/2017, patient requested medical euthanasia. He apparently also called other family members to inform them of this request for medical euthanasia. On interview, the patient did acknowledge that he had requested medical euthanasia and he was aware of reason for psychiatry consultation, stating it was because he was having suicidal ideation earlier in the day. He denied any prior history of suicide attempts or suicidal ideation. He did endorse a history of feeling depressed for periods of time in the past and also some recently in hospital due to his increased medical problems, but was not interested in any psychiatric medications. He clearly stated that his expressed suicidal ideation and expressed request for medically euthanasia was because of being "in so much pain and nobody would listen to me." He stated, "they were literally hanging me from this ceiling," referring to recent attempts to be moved or weighed, indicating perhaps a contraption was used to move or lift him which caused him much pain. He also reported discomfort from urinary retention and had felt constipated, also because of pain and discomfort he had not been able to engage in physical therapy, which was then putting him at risk for being sent to a SNF instead of where he currently resides. He did not want to be discharged to a senior care facility, which would also make him feel suicidal, but prefers to return to his current residence, [facility], an assisted living which he likes. He is aware that he needs to engage in physical therapy and resume his prior level of functioning in order to return. Patient stated that he was started on a new medication for pain earlier on day of this evaluation (01/08/2017), and by that afternoon felt "100% better" which caused resolution of his suicidal ideation. He denied ever having any plan or intent to harm himself. He reported no suicidal ideation since pain resolved and with feeling that his pain has been appropriately managed. Again, he reiterated that he only reported having suicidal thoughts and requesting medical euthanasia due to having "pain and no one listened." Additionally admitted other factors that helped his mood improve included speaking with his daughter for over an hour today which felt very supportive, and also having had a phone call from his brother in [place], which also felt supportive. He did endorse symptoms of overall decreased concentration, sleep being "not great," sometimes too much. Does not wear a CPAP and reportedly has ARIEL noted in records, but he denies having sleep apnea. Recently has had some low motivation and energy, and decreased appetite. States he was feeling down because of being in the hospital but, otherwise, did not feel that he has been depressed and desired no psychiatric treatment, and no psychiatric medication. Patient states he has 4 kids, oldest is a daughter who lives in [place], [place], and he feels closest with her. He did feel "she really listened to me " today when speaking with her. Also has a son and fraternal twin children. Brother is an patient service specialist in [place], currently in [place], who will be returning to the [facility] this weekend. Reported another brother recently. The patient reports no problems with his current assisted living facility, likes living there and wants to return. He denied any past psychiatric treatment, hospitalizations or diagnosis. He denied any history of harm to others or any prior suicidal ideation or attempts to harm himself, other than as expressed earlier today which he states is now resolved. He denied any family psychiatric history except mother was alcoholic. He denied any substance use history or current use. He denied having a mental health diagnosis or taking any mental health medications but does reside at [facility] where apparently history of mental health illness is part of an admission requirement. MENTAL STATUS EXAMINATION: Patient was alert and oriented x4. He was morbidly obese, in hospital gown, lying in hospital bed, sitting fairly upright, eating lunch. Eye contact was good. Speech was normal rate and volume, articulate. Mood was "100% better." Affect was normal range and appropriate to content of conversation. Thoughts were linear and goal directed without any evidence of delusions or responding to internal stimuli, and the patient denied any psychotic symptoms. He denied any suicidal ideation or thoughts of harming others. Cognition was conversationally intact. Insight and judgment were felt to be fair. ASSESSMENT: A 61-year-old, male with multiple medical problems, on numerous medical medications, who voiced suicidal ideation to be medically euthanized, which he states was a direct result of feeling significant pain and not feeling anyone was listening to him or taking his pain seriously. He denied any suicidal plans or intent to harm himself. He denied any prior attempt to harm himself nor any prior suicidal ideation. Medications were changed by hospitalist and patient felt this was significantly beneficial, with no reports of pain on afternoon of this evaluation, and with resolution of his suicidal ideation. He also admitted feeling emotionally supported by having phone contact with his daughter and brother. He admits having experienced periods of depression in the past, but admitted to feeling more acutely depressed since in the hospital and with significant pain he felt was not adequately treated. Seems also he had concerns that he could not resume prior level of independent functioning due to pain which would then threaten his return to his assisted living and possibly cause him to go to a SNF. Also states he learned a brother recently. He desires no mental health treatment or medications because he feels depression is not a chronic issue for him and is primarily situational. He is, however, at risk for depression, given his multiple medical problems, including possible untreated sleep apnea which can predispose him to depression. The patient is future oriented with plan to return to assisted living facility and, in the meantime, and is motivated to engage in recommended physical therapy and other treatment recommendations in order to return to assisted living now that his pain has resolved and also urinary retention is being addressed. DIAGNOSIS: Adjustment disorder with depressed mood RECOMMENDATIONS: 1. No medication recommendations from a psychiatric standpoint at this time, and none clearly indicated, and patient also is not interested in any treatment for any mental health issues. Could benefit from outpatient therapy, if so inclined, for support and additional nonpharmacological strategies for pain management. 2. No indication for M1 hold. Patient does not meet criteria at this time and is not felt to be at acute risk for harm to himself. He consistently denied any suicidal ideation, plan or intent to harm self, clearly stating he only expressed a request for medical euthanasia because of feeling significant pain and "no one was listening." Now feels pain has been addressed appropriately and he is future oriented. 3. Reports a history of depressed periods, and is at risk for depression. Encourage ARIEL treatment if he has this diagnosis (patient does not think he has ARIEL) as untreated ARIEL also a risk factor for depression, and poor sleep will also adversely affect cognition, motivation, energy and health. TSH has been normal each time checked, but not checked since 2014. Thank you for this consult. Do not hesitate to call if anything changes. May need reassessment if disposition changes, as he is adamant that he does not want to go to a SNF and voiced that this may make him feel suicidal again, but presently is not having any suicidal thoughts. /[id number]/MODL MTDD
[2017-01-09] MEDS: SENNOSIDES/DOCUSATE SODIUM TAB PO SCH (22:26)
[2017-01-09] MEDS: ROSUVASTATIN CALCIUM 20 MG TAB PO SCH (22:27)
[2017-01-10] MEDS: HEPARIN 5,000 UNIT/0.5 ML SYR SC SCH ×2 (05:57→16:38)
[2017-01-10] MEDS: INSULIN LISPRO 100 UNIT/ML SC SCH ×4 (08:50→22:21)
[2017-01-10] MEDS: INSULIN GLARGINE 100 UNITS/ML SYRINGE SC SCH ×2 (08:50→22:17)
[2017-01-10] MEDS: ALTEPLASE 2 MG VIAL IVP PRN (08:52)
[2017-01-10] MEDS: BUMETANIDE 1 MG/4 ML VIAL IVP SCH ×3 (08:52→16:40)
--- NOTE | 2017-01-10 08:53 | SOAPPROG ---
SOAP Progress Note Assessment/Plan: Assessment:Plan: CKD-creatinine 1.8 yesterday -near baseline -labs from today pending due to issues with pic line Edema-looks good -CPM Hypokalemia-on replacement -awaiting today's results -will given extra dose of KCl 40mEq x 1 yesterday -would recommend doing that again today if it remains < 4 01/10/17 08:51 Subjective: slept well last night, legs were more comfortable Objective: Vital Signs Temp Pulse Resp BP Pulse Ox 36.3 C 75 14 128/79 H 93 01/10/17 07:39 01/10/17 07:39 01/10/17 07:39 01/10/17 07:39 01/10/17 07:39 Microbiology 01/07/17 17:52 Blood Panel (PCR) - Final Blood Staph Coagulase Negative 01/07/17 11:05 Urine Culture - Final Urine,Catheterized One [place] Type Laboratory Results 01/09/17 05:30 01/09/17 05:30 01/09/17 01/10/17 01/11/17 05:59 05:59 05:59 Intake Total 2140 Output Total 2775 1400 Balance -635 -1400 Physical Exam - Physical Exam General Appearance: WD/WN, alert, no apparent distress, obese EENT: normal ENT inspection Neck: normal inspection Respiratory: decreased breath sounds (throughout) Cardiac/Chest: regular rate, rhythm Abdomen: distended Extremities: swelling (unchanged), other (chronic venous stasis changes) ICD10 Worksheet Patient Problems: Problems Problem Status Onset Diabetes Acute Hypokalemia Acute Renal failure (ARF), acute on chronic Acute Urinary retention Acute Hypertension Chronic Acute hypokalemia Acute Anasarca Acute Bilateral lower extremity edema Acute CHF (congestive heart failure) Acute CHF with right heart failure Acute Elevated BUN Acute Fluid overload Acute Obesity Acute Peripheral edema Acute Pneumonia Acute Hyperlipidemia Chronic Renal failure, chronic Chronic
[2017-01-10] MEDS: POLYETHYLENE GLYCOL 3350 17 GM PKT PO PRN (08:57)
[2017-01-10] MEDS: POTASSIUM CL 20 MEQ TAB PO SCH ×4 (08:58→22:17)
[2017-01-10] MEDS: GABAPENTIN 300 MG CAP PO SCH (08:59)
[2017-01-10] MEDS: SENNOSIDES/DOCUSATE SODIUM TAB PO SCH ×2 (08:59→22:17)
[2017-01-10] MEDS: TAMSULOSIN HCL 0.4 MG CAP PO SCH (08:59)
[2017-01-10] MEDS: ASPIRIN 81 MG CHEWABLE TAB PO SCH (09:00)
[2017-01-10] MEDS: METOPROLOL TARTRATE 50 MG TAB PO SCH ×2 (09:00→22:17)
[2017-01-10] MEDS: SPIRONOLACTONE 50 MG TAB PO SCH (09:16)
[2017-01-10 11:48] LABS: % IMMATURE GRANULYOCYTES 0.6 % (0.0-1.1); ABSOLUTE IMMATURE GRANULOCYTES 0.08 10^3/uL (0.00-0.10); ADD DIFF? NO; ADD MORPH? NO; ADD SCAN? NO; ATYPICAL LYMPHOCYTE FLAG 0 (0-99); FRAGMENT RBC FLAG 0 (0-99); HEMATOCRIT 47.4 % (40.0-51.0); HEMOGLOBIN 15.3 g/dL (13.7-17.5); LEFT SHIFT FLG 10 (0-99); LIPEMIA HEMOLYSIS FLAG 80 (0-99); MEAN CELL HEMOGLOBIN 27.9 pg (27.9-34.1); MEAN CELL HEMOGLOBIN CONCENTR. 32.3 g/dL (32.4-36.7); MEAN CELL VOLUME 86.5 fL (81.5-99.8); MEAN PLATELET VOLUME 11.1 fL (8.7-11.7); PLATELET CLUMPS FLAG 20 (0-99); PLATELET COUNT 312 10^3/uL (150-400); RED BLOOD CELL COUNT 5.48 10^6/uL (4.40-6.38); RED CELL DISTRIBUTION WIDTH 16.1 % (11.5-15.2)
[2017-01-10 12:14] LABS: ALANINE AMINOTRANSFERASE 78 IU/L (21-72); ALBUMIN 2.9 g/dL (3.5-5.0); ALKALINE PHOSPHATASE 219 IU/L (38-126); ANION GAP 12 mEq/L (8-16); ASPARTATE AMINOTRANSFERASE 82 IU/L (17-59); BILIRUBIN,TOTAL 1.2 mg/dL (0.1-1.4); CALCIUM 8.3 mg/dL (8.5-10.4); CARBON DIOXIDE 29 mEq/l (22-31); CHLORIDE 93 mEq/L (97-110); CREATININE 1.7 mg/dL (0.7-1.3); GLOMERULAR FILTRATION RATE 41; GLUCOSE 240 mg/dL (70-100); POTASSIUM 3.6 mEq/L (3.5-5.2); SODIUM 134 mEq/L (134-144)
[2017-01-10] MEDS ORDERED: POTASSIUM CL 20 MEQ TAB PO ONE (13:06)
--- NOTE | 2017-01-10 13:11 | HOSPPROG ---
Hospitalist Progress Note Assessment/Plan: Assessment/Plan: 61 yo M p/w acute urinary retention and hypokalemia, c/b acute diastolic CHF, suspected UTI, and severely depressed mood # Acute Urinary retention. Nl size prostate without masses on exam - ongoing condom-cath, outpt urodynamic studies - cont flomax # Suspected UTI. Evidenced by positive UA, urinary symptoms including frequency and dysuria, as well as leukocytosis - start CTX, D3/7 (complicated by definition in a male) # Acute diastolic CHF. Evidenced by interstitial markings on CXR and grossly volume overloaded LE - Echo w/ diastolic dysfunction, normal RV, no focal wall motion abnl - increased to bumex 2mg IV bid w/ aldactone 50mg daily - cont monitoring weights and UOP via condom-cath # Atrial fibrillation. Persistent, new diagnosis, present on EKG (personally interpreted) w/ stable old LBBB - d/w patient, has indicated for anticoagulation, start eliquis tomorrow AM and stop ASA now - cont metop tart 50mg bid, rate controlled - get outpt cards f/u appt to consider DCCV in 4 weeks # Coag negative staph. 1/2 bottles, suspect contaminent, monitor BCx # Hypokalemia. Acute, presumably 2/2 diuresis and large volume of distribution - give K 20mEq today # CKD Stage III. Baseline Cr around 2, lower than baseline indicating hypervolemia, cont to monitor # Depressed mood. Acute on chronic, patient does not warrant M1 as it was more situational and he was stressed about pain control, now better managed # Severe protein caloric malnutrition. Poor intake, Albumin 2.8, dietary consult # Morbid obesity. BMI 50, increased risk morbidity/mortality # DM. On large doses of U-500 and unable to obtain his home insulin - Will up-continue Lantus and continue high dose SSI. # Chronic pain w/ continuous opiate dependency. Poorly managed pain on oxy IR - discontinued IV morphine, d/w patient - start bowel regimen - increase gabapentin # ARIEL. Not on CPAP, needs outpt f/u Diet. As sumi PPx. High risk, on eliquis now Code. Full Dispo. ADD uncertain, patient not medically safe for discharge at this time Subjective: Patient reports no bowel movement, is interested in engaging with therapy Objective: Vital Signs Temp Pulse Resp BP Pulse Ox 36.3 C 75 14 128/79 H 93 01/10/17 07:39 01/10/17 07:39 01/10/17 07:39 01/10/17 07:39 01/10/17 07:39 Microbiology 01/07/17 17:52 Blood Panel (PCR) - Final Blood Staph Coagulase Negative 01/07/17 11:05 Urine Culture - Final Urine,Catheterized One [place] Type Laboratory Results 01/10/17 11:30 01/10/17 11:30 01/09/17 01/10/17 01/11/17 05:59 05:59 05:59 Intake Total 2140 Output Total 0937 1400 1800 Balance -154 -1400 -1800 - Pending Discharge Pending Discharge Within 24 Hours: Yes Pending Discharge Date: 01/11/17 Pending Discharge Time: 11:00 - Physical Exam Constitutional: no apparent distress, not in pain, chronically ill appearing, obese, No uncomfortable Cardiovascular: systolic murmur (Distant 106 at sternum), irregularly irregular , edema (2+ bilateral lower extremity), No tachycardia Respiratory: inspiratory crackles, No reduced air movement, No expiratory wheeze , No bronchial breath sounds Gastrointestinal: normoactive bowel sounds, soft, non-tender abdomen, no palpable masses Neurologic: AAOx3, sensation intact bilaterally Psychiatric: interacting appropriately, not anxious, not encephalopathic, thought process linear ICD10 Worksheet Patient Problems: Problems Problem Status Onset Peripheral edema Acute Hypertension Chronic Hyperlipidemia Chronic Diabetes Acute CHF with right heart failure Acute Renal failure, chronic Chronic Pneumonia Acute Hypokalemia Acute Renal failure (ARF), acute on chronic Acute Fluid overload Acute Bilateral lower extremity edema Acute Acute hypokalemia Acute CHF (congestive heart failure) Acute Anasarca Acute Elevated BUN Acute Obesity Acute Urinary retention Acute
--- NOTE | 2017-01-10 13:19 | SOAPPROG ---
SOAP Progress Note Assessment/Plan: Assessment: (late entry for 01/09/17) 61yo CM with mult medical problems, psych consult done yesterday afternoon () after pt reported SI requesting to be medically euthanized yesterday AM. No plan/intent to harm self, reported SI in relation to unmanaged pain, which resolved with medication changes. 01/09/17 17:03 Followed up with patient briefly today. Continues to deny any SI, and confirmed that he had felt this way yesterday b/c unmanaged pain- "that's for sure". Reports not feeling depressed today, rather "tired" after finished with PT today. Expressed feeling glad that he was able to engage in PT today b/c feeling better and pain under better control. Also pt talked with his dtr today which he said was nice for him and supportive. States he slept "okay". Does not feel he needs any treatment for mood or other mental health issues. Agrees he can talk with staff and alert someone if feeling otherwise or if any suicidal thoughts return. Continues to express motivation to work with medical team and recommendations, including with PT b/c wants to return to his prior assisted living residence which he liked. MSE: cooperative, lying in bed, good eye contact, mood "tired" but otherwise feels "fine", affect controlled, thoughts linear and goal-directed, denied any SI/HI or psychotic sxs, i/j both fair. A&Ox 4 except "3rd" instead of 2nd of January. Dx: Adj d/o with depr mood, with acute SI resolved Plan: SI resolved. Pt consistently reports not feeling any need for mental health treatment, and no acute issues identified. Will sign off. Thank you, feel free to reconsult if needed. Objective: Vital Signs Temp Pulse Resp BP Pulse Ox 36.3 C 75 14 128/79 H 93 01/10/17 07:39 01/10/17 07:39 01/10/17 07:39 01/10/17 07:39 01/10/17 07:39 Microbiology 01/07/17 17:52 Blood Panel (PCR) - Final Blood Staph Coagulase Negative 01/07/17 11:05 Urine Culture - Final Urine,Catheterized One [place] Type Laboratory Results 01/10/17 11:30 01/10/17 11:30 01/09/17 01/10/17 01/11/17 05:59 05:59 05:59 Intake Total 2140 Output Total 2854 1400 1800 Balance -631 -1400 1800 - Time Spent With Patient Time Spent With Patient: 15min - Pending Discharge Pending Discharge Within 24 Hours: No Pending Discharge Within 48 Hours: No ICD10 Worksheet Patient Problems: Problems Problem Status Onset Diabetes Acute Hypokalemia Acute Renal failure (ARF), acute on chronic Acute Urinary retention Acute Hypertension Chronic Acute hypokalemia Acute Anasarca Acute Bilateral lower extremity edema Acute CHF (congestive heart failure) Acute CHF with right heart failure Acute Elevated BUN Acute Fluid overload Acute Obesity Acute Peripheral edema Acute Pneumonia Acute Hyperlipidemia Chronic Renal failure, chronic Chronic
[2017-01-10] MEDS: GABAPENTIN 400 MG CAP PO SCH ×2 (16:36→22:17)
[2017-01-10] MEDS: ROSUVASTATIN CALCIUM 20 MG TAB PO SCH (22:17)
[2017-01-11 06:23] LABS: % IMMATURE GRANULYOCYTES 1.2 % (0.0-1.1); ABSOLUTE IMMATURE GRANULOCYTES 0.17 10^3/uL (0.00-0.10); ADD DIFF? NO; ADD MORPH? NO; ADD SCAN? NO; ATYPICAL LYMPHOCYTE FLAG 0 (0-99); FRAGMENT RBC FLAG 0 (0-99); HEMATOCRIT 46.8 % (40.0-51.0); HEMOGLOBIN 14.7 g/dL (13.7-17.5); LEFT SHIFT FLG 10 (0-99); LIPEMIA HEMOLYSIS FLAG 80 (0-99); MEAN CELL HEMOGLOBIN 27.5 pg (27.9-34.1); MEAN CELL HEMOGLOBIN CONCENTR. 31.4 g/dL (32.4-36.7); MEAN CELL VOLUME 87.5 fL (81.5-99.8); MEAN PLATELET VOLUME 11.1 fL (8.7-11.7); PLATELET CLUMPS FLAG 10 (0-99); PLATELET COUNT 341 10^3/uL (150-400); RED BLOOD CELL COUNT 5.35 10^6/uL (4.40-6.38); RED CELL DISTRIBUTION WIDTH 16.2 % (11.5-15.2)
[2017-01-11 06:52] LABS: ALANINE AMINOTRANSFERASE 71 IU/L (21-72); ALBUMIN 2.8 g/dL (3.5-5.0); ALKALINE PHOSPHATASE 220 IU/L (38-126); ANION GAP 11 mEq/L (8-16); ASPARTATE AMINOTRANSFERASE 55 IU/L (17-59); BILIRUBIN,TOTAL 1.2 mg/dL (0.1-1.4); CALCIUM 8.4 mg/dL (8.5-10.4); CARBON DIOXIDE 30 mEq/l (22-31); CHLORIDE 94 mEq/L (97-110); CREATININE 1.7 mg/dL (0.7-1.3); GLOMERULAR FILTRATION RATE 41; GLUCOSE 221 mg/dL (70-100); SODIUM 135 mEq/L (134-144); TOTAL PROTEIN 5.7 g/dL (6.3-8.2)
[2017-01-11] MEDS: INSULIN GLARGINE 100 UNITS/ML SYRINGE SC SCH ×2 (09:26→22:10)
[2017-01-11] MEDS: INSULIN LISPRO 100 UNIT/ML SC SCH ×4 (09:28→22:10)
[2017-01-11] MEDS: METOPROLOL TARTRATE 50 MG TAB PO SCH ×2 (09:33→22:10)
[2017-01-11] MEDS: APIXABAN 5 MG TAB PO SCH ×2 (09:55→22:10)
[2017-01-11] MEDS: GABAPENTIN 400 MG CAP PO SCH ×3 (09:56→22:10)
[2017-01-11] MEDS: SPIRONOLACTONE 50 MG TAB PO SCH (09:56)
[2017-01-11] MEDS: TAMSULOSIN HCL 0.4 MG CAP PO SCH (09:57)
[2017-01-11] MEDS: SENNOSIDES/DOCUSATE SODIUM TAB PO SCH ×2 (09:57→22:10)
[2017-01-11] MEDS: BUMETANIDE 1 MG/4 ML VIAL IVP SCH ×2 (10:19→16:05)
[2017-01-11] MEDS: POTASSIUM CL 20 MEQ TAB PO SCH ×3 (11:43→22:10)
--- NOTE | 2017-01-11 15:39 | SOAPPROG ---
SOAP Progress Note Assessment/Plan: Assessment:Plan: CKD-creatinine 1.8 yesterday -1.7 today -near baseline -labs from today pending due to issues with pic line Edema-looks good -CPM -I/0= 1350/4700 Hypokalemia-on replacement -K 4 today -CPM -give extra dose when less than 4 01/11/17 15:37 Subjective: sore right knee Objective: Vital Signs Temp Pulse Resp BP Pulse Ox 36.8 C 68 16 139/81 H 95 01/11/17 08:42 01/11/17 11:44 01/11/17 08:42 01/11/17 08:42 01/11/17 11:44 Microbiology 01/07/17 17:52 Blood Panel (PCR) - Final Blood Staph Coagulase Negative Laboratory Results 01/11/17 04:22 01/11/17 05:55 01/10/17 01/11/17 01/12/17 05:59 05:59 05:59 Intake Total 1350 Output Total 1400 4100 Balance -1400 -2750 Physical Exam - Physical Exam General Appearance: no apparent distress, obese EENT: normal ENT inspection Neck: normal inspection Respiratory: lungs clear, normal breath sounds, No respiratory distress Cardiac/Chest: regular rate, rhythm Abdomen: distended Extremities: swelling (improved) ICD10 Worksheet Patient Problems: Problems Problem Status Onset Diabetes Acute Hypokalemia Acute Renal failure (ARF), acute on chronic Acute Urinary retention Acute Hypertension Chronic Acute hypokalemia Acute Anasarca Acute Bilateral lower extremity edema Acute CHF (congestive heart failure) Acute CHF with right heart failure Acute Elevated BUN Acute Fluid overload Acute Obesity Acute Peripheral edema Acute Pneumonia Acute Hyperlipidemia Chronic Renal failure, chronic Chronic
--- NOTE | 2017-01-11 15:53 | GCON ---
[f rep st] CONSULTATION INFECTIOUS DISEASE CONSULTATION DATE OF CONSULTATION: 01/11/2017 REFERRING PHYSICIAN: Joo Covarrubias MD REASON FOR CONSULTATION: Leukocytosis of unclear etiology. HISTORY OF PRESENT ILLNESS: A 61-year-old male with a past medical history of right-sided heart failure, who presents to the emergency room with acute abdominal pain on 01/03/2017. The patient was found to have significant urinary retention at that time with 1.6 L with Gallo placement. He denies any associated fevers, chills, night sweats, diarrhea or pain in his abdomen associated with eating. As a part of his evaluation, the patient underwent a CT scan which showed no nephrolithiasis, left greater than right hydro, a dilated bladder, but a normal bladder wall, and a normal prostate. He did also have hepatic steatosis. Since admission, the patient reports that he feels no different, and in fact that his pain is worse in his legs, right greater than left, as compared to admission. The patient did have some mild pyuria with urinalysis showing 2.0 urobilinogen, 2+ leuko esterase, 50-182 RBCs, and 50-182 WBCs, with negative nitrite, but urine cultures did not reveal a significant urinary pathogen. Further, blood cultures were essentially negative with 1 out of 2 blood cultures showing coagulase-negative Staph consistent with contaminant. Cultures were collected on January 07, and antibiotics were started on January 08, which include ceftriaxone 1 g IV daily for concern of underlying UTI with retention on admission. In addition, the patient had an elevated white count at that time at 17,000. Finally, the patient was noticed to have significant hypokalemia, but his creatinine at 2.4 and 2.2 was not far from what is considered his baseline. PAST MEDICAL HISTORY: Right-sided heart failure, diabetes, severe obesity, chronic renal disease with a baseline creatinine around 2, diabetic neuropathy, hypertension, hyperlipidemia, obstructive sleep apnea, mild hypokalemia and gout. MEDICATIONS: Ceftriaxone 1 g IV daily started January 08. He is also on Tylenol, Eliquis 5 mg twice daily, Bumex 2 mg IV twice daily, Neurontin 400 mg 3 times daily, gatifloxacin eyedrops, insulin, lactulose as needed, Lopressor 50 mg twice daily, morphine 7.5-15 mg p.o. q.6 p.r.n., Zofran as needed, MiraLAX as needed, Senokot 1-2 tablets twice daily, spironolactone 50 mg daily, and Flomax 0.4 mg daily. ALLERGIES: Sulfa, unclear reaction. FAMILY HISTORY: Reviewed and noncontributory. SOCIAL HISTORY: He lives at [facility]. No past history of tobacco. REVIEW OF SYSTEMS: A complete 10-point review of systems was performed and is negative except as mentioned in the HPI. PHYSICAL EXAM: VITAL SIGNS: Blood pressure 139/81, heart rate 69, respiratory rate 16, saturation 95% on 2-3 L. Current urinary output yesterday was 4,100 with a net of 2.5 L. GENERAL: This is an obese male lying in bed with an extremely flat affect, who does not open his eyes during history. HEENT: No conjunctival hemorrhages. Oropharynx fair dentition. Moist mucous membranes. No oral ulcerations or exudates. NECK: Thick, supple. No lymphadenopathy or masses were dissected. CARDIOVASCULAR: Distant heart sounds. Regular rate 2/ 6 systolic murmur. CHEST: Clear to auscultation bilaterally. ABDOMEN: Morbidly obese. No Hernadez's sign. Bowel sounds are present. EXTREMITIES: No joint swelling, 1+ lower extremity edema. NEUROLOGICALLY: The patient was not cooperative, but appeared to be moving all 4 extremities equally. The patient with a depressed affect. LABORATORY: Today white count is 14.4, hematocrit 46, platelets of 341, 73% neutrophils, 13% lymphocytes, creatinine 1.7. Urinalysis as per HPI. AST 55, ALT 71, alkaline phosphatase 220, total protein 5.7, albumin 2.8, total bilirubin 1.2. CT imaging as per HPI. Chest x-ray showed bilateral atelectasis. ASSESSMENT AND PLAN: A 61-year-old male with right heart failure, admitted on January 03 with abdominal pain, and is found to have urinary retention, which has been attributed to underlying diabetes and possible narcotics use, but now has resolved with excellent urinary output. Further, the patient had hypokalemia, also now resolved. In addition, it was identified the patient had a mild pyuria and peripheral blood leukocytosis, therefore initial concern for UTI, but urine culture showed no significant urinary pathogens, and blood cultures also did not reveal a significant pathogen. Not clear what is causing the patient's chronic elevated leukocytosis. Of note, his baseline white count ranges from 10-12. Although his current white count is slightly above this, no clear source of infection was identified by complete review of systems and exam. Would discontinue ceftriaxone and monitor for clinical signs. In addition, would obtain serial WBCs if white count trends up without localizing symptoms. Could consider CT of the chest for further evaluation. Thank you for this consultation. We will continue to follow on a daily basis. /[id number]/MODL MTDD
--- NOTE | 2017-01-11 16:20 | HOSPPROG ---
Hospitalist Progress Note Assessment/Plan: Assessment/Plan: 61 yo M p/w acute urinary retention and hypokalemia, c/b acute diastolic CHF, suspected UTI, and severely depressed mood # Acute Urinary retention. Nl size prostate without masses on exam - ongoing condom-cath, outpt urodynamic studies as outpatient with Dr. Betancur - cont flomax # Suspected asymptomatic bacturia. Indeterminant UA, UCx w/ non-infected sample - d/w Dr. Nickerson, we agree that leukocytosis and coag neg staph are probably not 2/2 urinary source of infxn, decided to discontinue Abx and monitor WBC/ temp for additional 24-48hrs (CTX given 01/11, off now) # Acute diastolic CHF. Evidenced by interstitial markings on CXR and grossly volume overloaded LE - Echo w/ diastolic dysfunction, normal RV, no focal wall motion abnl - good diuresis on bumex 2mg IV bid w/ aldactone 50mg daily - cont monitoring weights and UOP via condom-cath - patient was not mobilizing fluid particularly well prior to this dosing of diuretics # Atrial fibrillation. Persistent, new diagnosis, present on EKG (personally interpreted) w/ stable old LBBB - started eliquis - cont metop tart 50mg bid, rate controlled - get outpt cards f/u appt to consider [facility] in 4 weeks # Coag negative staph. 1/2 bottles, suspect contaminent, monitor BCx # Hypokalemia. Acute, presumably 2/2 diuresis and large volume of distribution - no K today # CKD Stage III. Baseline Cr around 2, lower than baseline indicating hypervolemia, cont to monitor - appreciate renal consult, recommend outpt renal f/u # Depressed mood. Acute on chronic, patient does not warrant M1 as it was more situational and he was stressed about pain control - worsening today, patient unable to maintain eye contact and has minimal interaction w/ staff - d/w patient, initiate venlafaxine in AM and needs outpt psych f/u # Severe protein caloric malnutrition. Poor intake, Albumin 2.8, dietary consult # Morbid obesity. BMI 50, increased risk morbidity/mortality # DM. On large doses of U-500 and unable to obtain his home insulin - Will up-continue Lantus and continue high dose SSI. # Chronic pain w/ continuous opiate dependency. Poorly managed pain on oxy IR, adjusted to morphine IR PO range - started bowel regimen - increased gabapentin # ARIEL. Not on CPAP, needs outpt f/u Diet. As sumi PPx. High risk, on eliquis now Code. Full Dispo. ADD 01/13, patient not medically safe for discharge at this time, d/w case mgmt he will need SNF Subjective: counseled patient that he should initiate an activating antidepressant, patient agrees, patient is agreeable to remaining hospitalized for an additional 24-48 hours to ensure that he does not blossomed infection now he is being discontinued from antibiotics Objective: Vital Signs Temp Pulse Resp BP Pulse Ox 36.4 C 72 22 H 119/68 92 01/11/17 15:54 01/11/17 16:09 01/11/17 15:54 01/11/17 15:54 01/11/17 16:14 Microbiology 01/07/17 17:52 Blood Panel (PCR) - Final Blood Staph Coagulase Negative Laboratory Results 01/11/17 04:22 01/11/17 05:55 01/10/17 01/11/17 01/12/17 05:59 05:59 05:59 Intake Total 1350 Output Total 1400 4100 1400 Balance -1400 -2750 -1400 - Time Spent With Patient Time Spent with Patient: greater than 35 minutes Time Spent with Patient: Greater than 35 minutes spent on this patients care, greater than 50% of time spent counseling, educating, and coordinating care regarding the above mentioned plan. - Physical Exam Constitutional: no apparent distress, not in pain, chronically ill appearing, obese, No uncomfortable Cardiovascular: regular rate and rhythym, no murmur, rub, or gallop, edema ( 1+ bilateral lower extremity edema) Respiratory: no respiratory distress, no rales or rhonchi, clear to auscultation Gastrointestinal: normoactive bowel sounds, soft, non-tender abdomen, no palpable masses Neurologic: AAOx3 Psychiatric: not anxious, not encephalopathic, depressed, flat affect, No agitated ICD10 Worksheet Patient Problems: Problems Problem Status Onset Peripheral edema Acute Hypertension Chronic Hyperlipidemia Chronic Diabetes Acute CHF with right heart failure Acute Renal failure, chronic Chronic Pneumonia Acute Hypokalemia Acute Renal failure (ARF), acute on chronic Acute Fluid overload Acute Bilateral lower extremity edema Acute Acute hypokalemia Acute CHF (congestive heart failure) Acute Anasarca Acute Elevated BUN Acute Obesity Acute Urinary retention Acute
[2017-01-11] MEDS: ROSUVASTATIN CALCIUM 20 MG TAB PO SCH (22:10)
[2017-01-12] MEDS: SPIRONOLACTONE 50 MG TAB PO SCH (08:05)
[2017-01-12] MEDS: INSULIN LISPRO 100 UNIT/ML SC SCH ×4 (08:05→22:14)
[2017-01-12] MEDS: TAMSULOSIN HCL 0.4 MG CAP PO SCH (08:05)
[2017-01-12] MEDS: INSULIN GLARGINE 100 UNITS/ML SYRINGE SC SCH ×2 (08:05→20:29)
[2017-01-12] MEDS: POTASSIUM CL 20 MEQ TAB PO SCH ×3 (08:05→20:27)
[2017-01-12] MEDS: VENLAFAXINE XR 37.5 MG CAP PO SCH (08:05)
[2017-01-12] MEDS: GABAPENTIN 400 MG CAP PO SCH ×3 (08:05→20:27)
[2017-01-12] MEDS: APIXABAN 5 MG TAB PO SCH ×2 (08:05→20:27)
[2017-01-12] MEDS: METOPROLOL TARTRATE 50 MG TAB PO SCH ×2 (08:05→20:28)
--- NOTE | 2017-01-12 11:00 | PCMIDPN ---
Assessment/Plan: Assessment: Leukocytosis-no clear directed source for possible infection. Off antibiotics. Afebrile and asymptomatic. Will continue to follow peripherally at this point. Possible leukemoid response secondary to urinary retention. Plan: 1. Continue to observe off empiric antibiotics. Subjective: Patient is resting comfortably. He has no new complaints. Denies fevers or chills. Denies localizing symptoms. Objective: No antibiotics Vital Signs Temp Pulse Resp BP Pulse Ox 36.7 C 68 18 142/81 H 90 L 01/11/17 23:24 01/11/17 23:24 01/11/17 23:24 01/11/17 23:24 01/11/17 23:24 Microbiology 01/07/17 17:52 Blood Panel (PCR) - Final Blood Staph Coagulase Negative Laboratory Results 01/11/17 04:22 01/11/17 05:55 01/11/17 01/12/17 01/13/17 05:59 05:59 05:59 Intake Total 1350 250 Output Total 4100 1400 Balance -2750 -1150 - Physical Exam General Appearance: WD/WN, alert, no apparent distress, non-toxic Skin: normal color, warm/dry, No rash Neuro/Psych: alert, normal mood/affect ICD10 Worksheet Patient Problems: Problems Problem Status Onset Diabetes Acute Hypokalemia Acute Renal failure (ARF), acute on chronic Acute Urinary retention Acute Hypertension Chronic Acute hypokalemia Acute Anasarca Acute Bilateral lower extremity edema Acute CHF (congestive heart failure) Acute CHF with right heart failure Acute Elevated BUN Acute Fluid overload Acute Obesity Acute Peripheral edema Acute Pneumonia Acute Hyperlipidemia Chronic Renal failure, chronic Chronic
[2017-01-12 11:18] LABS: % IMMATURE GRANULYOCYTES 1.1 % (0.0-1.1); ABSOLUTE IMMATURE GRANULOCYTES 0.14 10^3/uL (0.00-0.10); ADD DIFF? NO; ADD MORPH? NO; ADD SCAN? NO; ATYPICAL LYMPHOCYTE FLAG 0 (0-99); FRAGMENT RBC FLAG 0 (0-99); HEMATOCRIT 45.6 % (40.0-51.0); HEMOGLOBIN 14.3 g/dL (13.7-17.5); LEFT SHIFT FLG 10 (0-99); LIPEMIA HEMOLYSIS FLAG 80 (0-99); MEAN CELL HEMOGLOBIN 27.3 pg (27.9-34.1); MEAN CELL HEMOGLOBIN CONCENTR. 31.4 g/dL (32.4-36.7); MEAN CELL VOLUME 87.2 fL (81.5-99.8); MEAN PLATELET VOLUME 10.5 fL (8.7-11.7); PLATELET CLUMPS FLAG 0 (0-99); PLATELET COUNT 359 10^3/uL (150-400); RED BLOOD CELL COUNT 5.23 10^6/uL (4.40-6.38); RED CELL DISTRIBUTION WIDTH 15.9 % (11.5-15.2)
[2017-01-12 12:34] LABS: ALANINE AMINOTRANSFERASE 48 IU/L (21-72); ALBUMIN 2.8 g/dL (3.5-5.0); ALKALINE PHOSPHATASE 183 IU/L (38-126); ANION GAP 11 mEq/L (8-16); ASPARTATE AMINOTRANSFERASE 35 IU/L (17-59); CALCIUM 8.6 mg/dL (8.5-10.4); CARBON DIOXIDE 32 mEq/l (22-31); CHLORIDE 94 mEq/L (97-110); CREATININE 1.5 mg/dL (0.7-1.3); GLOMERULAR FILTRATION RATE 47; GLUCOSE 233 mg/dL (70-100); SODIUM 137 mEq/L (134-144); TOTAL PROTEIN 5.5 g/dL (6.3-8.2)
[2017-01-12] MEDS: BUMETANIDE 1 MG/4 ML VIAL IVP SCH ×2 (13:03→16:48)
[2017-01-12] MEDS: SENNOSIDES/DOCUSATE SODIUM TAB PO SCH ×2 (13:06→20:27)
--- NOTE | 2017-01-12 15:27 | HOSPPROG ---
Hospitalist Progress Note Assessment/Plan: DIAGNOSES: -acute urinary retention: on flomax -acute on chronic diastolic CHF: bumex/aldactone diuresis -his leg edema is now better than I have ever seen it -new persistant AFib: started on eliquis; good rate control on metoprolol -acute on chronic kidney disease: better today -Depression: seen by psychiatry, pt is not suicidal and not having psychotic features. He is started at present on venlafaxine which he is tolerting well. Outpatient follow up for medication effect and tolerance is recommended once he returns home. -DM, insulin dependent: normally using very large doses of U500 insulin, which we do not have here; overall reasonably good control here on basal/bolus -Chronic pain syndrome: doing reasonably well on his usual meds -ARIEL: does not use CPAP -Obesity, but with evidence of malnutrition due to poor intake PLANS: -continue current management as above -at this time he is stable for transfer to SNF for rehab but waiting for government agency approvals -outpt f/u for depression w primary care -outpt f/u for a fib w cardiol -outpt f/u w sleep medicine if he decides he will reconsider for use of cpap -continue current insulin; for economic reasons he will likely go back to the U500 regular via his PCP once returning home SUBJECTIVE: no pain no sob poor appetite somewhat better w depression he is happy with taking the antidepressant at this time VITALS: stable without fever EXAM: alert oriented relaxed skin warm dry color ok no jvd resps easy lungs clear heart irreg abd soft nondistended legs remarkably little edema for him, really no pitting at present Lab data: creat better at 2.3 today sugars mostly < 180, intermittently higher Objective: Vital Signs Temp Pulse Resp BP Pulse Ox 36.7 C 68 18 142/81 H 90 L 01/11/17 23:24 01/11/17 23:24 01/11/17 23:24 01/11/17 23:24 01/11/17 23:24 Laboratory Results 01/12/17 11:08 01/12/17 11:08 01/11/17 01/12/17 01/13/17 06:59 06:59 06:59 Intake Total 1350 250 Output Total 4100 1400 1000 Balance -2750 -1150 -1000 ICD10 Worksheet Patient Problems: Problems Problem Status Onset Diabetes Acute Hypokalemia Acute Renal failure (ARF), acute on chronic Acute Urinary retention Acute Hypertension Chronic Acute hypokalemia Acute Anasarca Acute Bilateral lower extremity edema Acute CHF (congestive heart failure) Acute CHF with right heart failure Acute Elevated BUN Acute Fluid overload Acute Obesity Acute Peripheral edema Acute Pneumonia Acute Hyperlipidemia Chronic Renal failure, chronic Chronic
--- NOTE | 2017-01-12 16:38 | SOAPPROG ---
SOAP Progress Note Assessment/Plan: Assessment/Plan: CKD stage III: Cr currently better than baseline at 1.5. - Will continue to monitor. - Avoid nephrotoxins. Hypokalemia: chronic, likely from diuretic use, pt on Bumex and metolazone at home. K currently improved and stable at 4.0. - Will continue current KCl replacement. - Pt getting spironolactone. - Will continue to monitor. - Pt will need additional replacement if K <4. Hypervolemia: chronic, likely due to CHF. Currently improved on combination of spironolactone and Bumex, will continue to monitor. Subjective: No acute events overnight. Pt feeling ok overall, no dyspnea, swelling improved. He is still having pain in his legs, although less tender to touch. Objective: Vital Signs Temp Pulse Resp BP Pulse Ox 36.7 C 68 18 142/81 H 90 L 01/11/17 23:24 01/11/17 23:24 01/11/17 23:24 01/11/17 23:24 01/11/17 23:24 Laboratory Results 01/12/17 11:08 01/12/17 11:08 01/11/17 01/12/17 01/13/17 05:59 05:59 05:59 Intake Total 1350 250 Output Total 4100 1400 1000 Balance -2750 -1150 -1000 General; alert and oriented, no acute distress Eyes: EOMI, PERRL OP: Clear CV: RRR Resp: nonlabored respirations, CTAB Abd: Soft, NT Ext: +1 edema BLE Neuro: CN II-XII grossly intact, no asterixis PsycH: cooperative, appropriate mood and affect ICD10 Worksheet Patient Problems: Problems Problem Status Onset Diabetes Acute Hypokalemia Acute Renal failure (ARF), acute on chronic Acute Urinary retention Acute Hypertension Chronic Acute hypokalemia Acute Anasarca Acute Bilateral lower extremity edema Acute CHF (congestive heart failure) Acute CHF with right heart failure Acute Elevated BUN Acute Fluid overload Acute Obesity Acute Peripheral edema Acute Pneumonia Acute Hyperlipidemia Chronic Renal failure, chronic Chronic
[2017-01-12] MEDS: BUMETANIDE 2 MG TAB PO SCH ×2 (16:47→16:59)
[2017-01-12] MEDS: ROSUVASTATIN CALCIUM 20 MG TAB PO SCH (20:28)
[2017-01-13] MEDS: INSULIN LISPRO 100 UNIT/ML SC SCH ×4 (08:33→21:50)
[2017-01-13] MEDS: VENLAFAXINE XR 37.5 MG CAP PO SCH (09:27)
[2017-01-13] MEDS: TAMSULOSIN HCL 0.4 MG CAP PO SCH (09:27)
[2017-01-13] MEDS: POTASSIUM CL 20 MEQ TAB PO SCH ×2 (09:27→21:51)
[2017-01-13] MEDS: GABAPENTIN 400 MG CAP PO SCH ×3 (09:27→21:51)
[2017-01-13] MEDS: BUMETANIDE 2 MG TAB PO SCH ×2 (09:28→15:58)
[2017-01-13] MEDS: APIXABAN 5 MG TAB PO SCH ×2 (09:28→21:51)
[2017-01-13] MEDS: METOPROLOL TARTRATE 50 MG TAB PO SCH ×2 (09:28→21:52)
[2017-01-13] MEDS: SENNOSIDES/DOCUSATE SODIUM TAB PO SCH ×2 (09:29→21:57)
[2017-01-13] MEDS: INSULIN GLARGINE 100 UNITS/ML SYRINGE SC SCH ×2 (09:29→21:50)
[2017-01-13] MEDS: SPIRONOLACTONE 50 MG TAB PO SCH (09:39)
[2017-01-13 10:11] LABS: ALBUMIN 2.9 g/dL (3.5-5.0); ANION GAP 10 mEq/L (8-16); CALCIUM 8.6 mg/dL (8.5-10.4); CARBON DIOXIDE 31 mEq/l (22-31); CHLORIDE 95 mEq/L (97-110); CREATININE 1.3 mg/dL (0.7-1.3); GLOMERULAR FILTRATION RATE 56; GLUCOSE 206 mg/dL (70-100); POTASSIUM 4.3 mEq/L (3.5-5.2); SODIUM 136 mEq/L (134-144)
--- NOTE | 2017-01-13 10:27 | HOSPPROG ---
Hospitalist Progress Note Assessment/Plan: DIAGNOSES: -acute urinary retention: on flomax -acute on chronic diastolic CHF: bumex/aldactone diuresis -his leg edema is now better than I have ever seen it -new persistant AFib: started on eliquis; good rate control on metoprolol -acute on chronic kidney disease: better today -Depression: seen by psychiatry, pt is not suicidal and not having psychotic features. He is started at present on venlafaxine which he is tolerting well. Outpatient follow up for medication effect and tolerance is recommended once he returns home. -DM, insulin dependent: normally using very large doses of U500 insulin, which we do not have here; overall reasonably good control here on basal/bolus -Chronic pain syndrome: doing reasonably well on his usual meds -ARIEL: does not use CPAP -Obesity, but with evidence of malnutrition due to poor intake overall he is doing nicely with no current urinary retention, diuresis to the best fluid status I have ever seen him with, and improvement to his best recent baseline renal function PLANS: -continue current management as above -outpt f/u for depression w primary care -outpt f/u for a fib w cardiol -outpt f/u w sleep medicine if he decides he will reconsider for use of cpap -continue current insulin; for economic reasons he will likely go back to the U500 regular via his PCP once returning home Disposition: -at this time he is stable for transfer to SNF for rehab but waiting for government agency approvals SUBJECTIVE: no pain or sob eating better today still w depression symptoms little changed no side effects noted from venlafaxine VITALS: stable without fever EXAM: alert oriented relaxed skin warm dry color ok no jvd resps easy lungs clear heart irreg abd soft nondistended legs remarkably little edema for him, really no pitting at present Objective: Vital Signs Temp Pulse Resp BP Pulse Ox 36.7 C 67 18 134/85 H 90 L 01/13/17 07:48 01/13/17 07:48 01/13/17 07:48 01/13/17 07:48 01/13/17 07:48 Microbiology 01/07/17 17:52 Blood Culture - Final Blood Staphylococcus Sp Coag Neg Blood Panel (PCR) - Final Staph Coagulase Negative 01/07/17 14:05 Blood Culture - Final Blood Laboratory Results 01/12/17 11:08 01/13/17 09:45 01/12/17 01/13/17 01/14/17 06:59 06:59 06:59 Intake Total 250 237 Output Total 1400 5520 Balance -9880 -7113 ICD10 Worksheet Patient Problems: Problems Problem Status Onset Diabetes Acute Hypokalemia Acute Renal failure (ARF), acute on chronic Acute Urinary retention Acute Hypertension Chronic Acute hypokalemia Acute Anasarca Acute Bilateral lower extremity edema Acute CHF (congestive heart failure) Acute CHF with right heart failure Acute Elevated BUN Acute Fluid overload Acute Obesity Acute Peripheral edema Acute Pneumonia Acute Hyperlipidemia Chronic Renal failure, chronic Chronic
--- NOTE | 2017-01-13 10:33 | SOAPPROG ---
SOAP Progress Note Assessment/Plan: Assessment/Plan: CKD stage III: Cr currently markedly better than baseline at 1.3. - Will continue to monitor. - Avoid nephrotoxins. Hypokalemia: chronic, likely from diuretic use, pt on Bumex and metolazone at home. K currently improved and now up to 4.3 today. - Will decrease KCl replacement to 20meq po BID. - Pt getting spironolactone. - Will continue to monitor. Hypervolemia: chronic, likely due to CHF. Currently much improved on combination of spironolactone and Bumex, will continue to monitor. Subjective: No acute events overnight. Pt notes he still has pain in legs, although swelling improved. He has no other complaints today. Objective: Vital Signs Temp Pulse Resp BP Pulse Ox 36.7 C 67 18 134/85 H 90 L 01/13/17 07:48 01/13/17 07:48 01/13/17 07:48 01/13/17 07:48 01/13/17 07:48 Microbiology 01/07/17 17:52 Blood Culture - Final Blood Staphylococcus Sp Coag Neg Blood Panel (PCR) - Final Staph Coagulase Negative 01/07/17 14:05 Blood Culture - Final Blood Laboratory Results 01/12/17 11:08 01/13/17 09:45 01/12/17 01/13/17 01/14/17 05:59 05:59 05:59 Intake Total 250 237 Output Total 1400 3600 Balance -1150 -3363 General: alert and oriented, no acute distress, obese Eyes; EOMI, PERRL OP: Clear CV: RRR Resp: nonlabored respirations on RA Abd: Soft, NT Ext: trace edema BLE Neuro: CN II-XII grossly intact, no asterixis Psych: cooperative, blunted affect ICD10 Worksheet Patient Problems: Problems Problem Status Onset Diabetes Acute Hypokalemia Acute Renal failure (ARF), acute on chronic Acute Urinary retention Acute Hypertension Chronic Acute hypokalemia Acute Anasarca Acute Bilateral lower extremity edema Acute CHF (congestive heart failure) Acute CHF with right heart failure Acute Elevated BUN Acute Fluid overload Acute Obesity Acute Peripheral edema Acute Pneumonia Acute Hyperlipidemia Chronic Renal failure, chronic Chronic
[2017-01-13] MEDS: ROSUVASTATIN CALCIUM 20 MG TAB PO SCH (21:51)
[2017-01-14 05:05] LABS: ANION GAP 11 mEq/L (8-16); CALCIUM 8.7 mg/dL (8.5-10.4); CARBON DIOXIDE 31 mEq/l (22-31); CHLORIDE 95 mEq/L (97-110); CREATININE 1.3 mg/dL (0.7-1.3); GLOMERULAR FILTRATION RATE 56; GLUCOSE 157 mg/dL (70-100); POTASSIUM 4.2 mEq/L (3.5-5.2); SODIUM 137 mEq/L (134-144)
[2017-01-14] MEDS: INSULIN LISPRO 100 UNIT/ML SC SCH ×4 (07:59→21:54)
[2017-01-14] MEDS: INSULIN GLARGINE 100 UNITS/ML SYRINGE SC SCH ×2 (08:00→21:54)
[2017-01-14] MEDS: METOPROLOL TARTRATE 50 MG TAB PO SCH ×2 (08:02→21:55)
[2017-01-14] MEDS: APIXABAN 5 MG TAB PO SCH ×2 (08:02→21:53)
[2017-01-14] MEDS: GABAPENTIN 400 MG CAP PO SCH ×3 (08:02→21:54)
[2017-01-14] MEDS: SENNOSIDES/DOCUSATE SODIUM TAB PO SCH ×2 (08:03→22:14)
[2017-01-14] MEDS: POTASSIUM CL 20 MEQ TAB PO SCH ×2 (08:03→21:53)
[2017-01-14] MEDS: TAMSULOSIN HCL 0.4 MG CAP PO SCH (08:03)
[2017-01-14] MEDS: VENLAFAXINE XR 37.5 MG CAP PO SCH (08:16)
[2017-01-14] MEDS: SPIRONOLACTONE 50 MG TAB PO SCH (10:28)
[2017-01-14] MEDS: BUMETANIDE 2 MG TAB PO SCH ×2 (10:32→15:14)
[2017-01-14] MEDS: SPIRONOLACTONE 25 MG TAB PO SCH (10:32)
--- NOTE | 2017-01-14 11:57 | SOAPPROG ---
DYAN Progress Note Assessment/Plan: Assessment: 1. Obstruction Gallo out. Will check PVR today. He would benefit from outpatient urology follow up. Dr. Manzano in [place] accepts medicaid. [phone] 2. 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 We will move this to [place] in the hopes of better follow up. Cr is better. I would ask for a weekly RFP sent to me. 3. Volume/Lytes Much improved. As above, will need close follow up. 4. Disposition Would benefit from SNF. Subjective: Doing fair Objective: Vital Signs Temp Pulse Resp BP Pulse Ox 36.7 C 67 18 132/90 H 92 01/14/17 08:07 01/14/17 08:07 01/14/17 08:07 01/14/17 08:07 01/14/17 08:07 Microbiology 01/07/17 17:52 Blood Culture - Final Blood Staphylococcus Sp Coag Neg Blood Panel (PCR) - Final Staph Coagulase Negative 01/07/17 14:05 Blood Culture - Final Blood Laboratory Results 01/12/17 11:08 01/14/17 04:20 01/13/17 01/14/17 01/15/17 05:59 05:59 05:59 Intake Total 237 1100 Output Total 3600 2750 Balance -3363 -1650 Physical Exam - Physical Exam General Appearance: no apparent distress Respiratory: lungs clear Cardiac/Chest: regular rate, rhythm Extremities: pedal edema Neuro/Psych: oriented x 3 ICD10 Worksheet Patient Problems: Problems Problem Status Onset Diabetes Acute Hypokalemia Acute Renal failure (ARF), acute on chronic Acute Urinary retention Acute Hypertension Chronic Acute hypokalemia Acute Anasarca Acute Bilateral lower extremity edema Acute CHF (congestive heart failure) Acute CHF with right heart failure Acute Elevated BUN Acute Fluid overload Acute Obesity Acute Peripheral edema Acute Pneumonia Acute Hyperlipidemia Chronic Renal failure, chronic Chronic
--- NOTE | 2017-01-14 18:42 | HOSPPROG ---
Hospitalist Progress Note Assessment/Plan: DIAGNOSES: -acute urinary retention: on flomax -acute on chronic diastolic CHF: bumex/aldactone diuresis -his leg edema is now better than I have ever seen it -new persistant AFib: started on eliquis; good rate control on metoprolol -acute on chronic kidney disease: better today -Depression: seen by psychiatry, pt is not suicidal and not having psychotic features. He is started at present on venlafaxine which he is tolerting well. I will reassess tomorrow and if he continues to do well without side effects will consider increasing the dose of venlafaxine. Outpatient follow up for medication effect and tolerance is recommended once he returns home. -DM, insulin dependent: normally using very large doses of U500 insulin, which we do not have here; overall reasonably good control here on basal/bolus -Chronic pain syndrome: doing reasonably well on his usual meds -ARIEL: does not use CPAP -Obesity, but with evidence of malnutrition due to poor intake overall he is doing nicely with no current urinary retention, diuresis to the best fluid status I have ever seen him with, and improvement to his best recent baseline renal function PLANS: -continue current management as above -outpt f/u for depression w primary care -outpt f/u for a fib w cardiol -outpt f/u w sleep medicine if he decides he will reconsider for use of cpap -continue current insulin; for economic reasons he will likely go back to the U500 regular via his PCP once returning home Disposition: -at this time he is stable for transfer to SNF for rehab but waiting for government agency approvals SUBJECTIVE: no pain or sob eating better today still w depression symptoms little changed no side effects noted from venlafaxine VITALS: stable without fever EXAM: alert oriented relaxed skin warm dry color ok no jvd resps easy lungs clear heart irreg abd soft nondistended legs remarkably little edema for him, really no pitting at present Objective: Vital Signs Temp Pulse Resp BP Pulse Ox 36.7 C 69 18 141/96 H 93 01/14/17 16:00 01/14/17 16:00 01/14/17 16:00 01/14/17 16:00 01/14/17 16:00 Laboratory Results 01/12/17 11:08 01/14/17 04:20 0601/14/17 01/15/17 06:59 06:59 06:59 Intake Total 237 1100 640 Output Total 3600 0193 500 Balance -3363 -1650 140 ICD10 Worksheet Patient Problems: Problems Problem Status Onset Diabetes Acute Hypokalemia Acute Renal failure (ARF), acute on chronic Acute Urinary retention Acute Hypertension Chronic Acute hypokalemia Acute Anasarca Acute Bilateral lower extremity edema Acute CHF (congestive heart failure) Acute CHF with right heart failure Acute Elevated BUN Acute Fluid overload Acute Obesity Acute Peripheral edema Acute Pneumonia Acute Hyperlipidemia Chronic Renal failure, chronic Chronic
[2017-01-14] MEDS: ROSUVASTATIN CALCIUM 20 MG TAB PO SCH (21:54)
[2017-01-15 04:56] LABS: ALBUMIN 3.1 g/dL (3.5-5.0); ANION GAP 13 mEq/L (8-16); CARBON DIOXIDE 31 mEq/l (22-31); CHLORIDE 95 mEq/L (97-110); CREATININE 1.3 mg/dL (0.7-1.3); GLOMERULAR FILTRATION RATE 56; GLUCOSE 137 mg/dL (70-100); POTASSIUM 4.5 mEq/L (3.5-5.2); SODIUM 139 mEq/L (134-144)
[2017-01-15] MEDS: INSULIN LISPRO 100 UNIT/ML SC SCH ×4 (08:43→21:35)
[2017-01-15] MEDS ORDERED: SPIRONOLACTONE 25 MG TAB PO SCH (09:00)
--- NOTE | 2017-01-15 09:53 | SOAPPROG ---
DYAN Progress Note Assessment/Plan: Assessment: 1. Obstruction Cleo is back in. He is on alpha [facility]. Dr. Manzano in [place] accepts medicaid. [phone] 2. 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 We will move this to [place] in the hopes of better follow up. Cr is better. I would ask for a weekly RFP sent to me. We will need to follow K level closely. 3. Volume/Lytes Much improved. As above, will need close follow up. 4. Disposition Would benefit from SNF. 5. Neuropathy Will increase gabapentin, as his pain is uncontrolled. 01/15/17 09:52 Subjective: Physically better, but depressed Objective: Vital Signs Temp Pulse Resp BP Pulse Ox 36.7 C 74 20 131/93 H 92 01/15/17 08:00 01/15/17 08:00 01/15/17 08:00 01/15/17 08:00 01/15/17 08:00 Laboratory Results 01/12/17 11:08 01/15/17 04:31 01/14/17 01/15/17 01/16/17 05:59 05:59 05:59 Intake Total 1100 640 Output Total 2750 1200 Balance -1650 -560 Physical Exam - Physical Exam General Appearance: no apparent distress Respiratory: decreased breath sounds Cardiac/Chest: irregularly irregular Abdomen: soft, other (obese) Male Genitalia: other (curiel back in) Extremities: pedal edema (improved) Neuro/Psych: depressed affect ICD10 Worksheet Patient Problems: Problems Problem Status Onset Diabetes Acute Hypokalemia Acute Renal failure (ARF), acute on chronic Acute Urinary retention Acute Hypertension Chronic Acute hypokalemia Acute Anasarca Acute Bilateral lower extremity edema Acute CHF (congestive heart failure) Acute CHF with right heart failure Acute Elevated BUN Acute Fluid overload Acute Obesity Acute Peripheral edema Acute Pneumonia Acute Hyperlipidemia Chronic Renal failure, chronic Chronic
[2017-01-15] MEDS: METOPROLOL TARTRATE 50 MG TAB PO SCH ×2 (10:02→21:33)
[2017-01-15] MEDS: GABAPENTIN 400 MG CAP PO SCH ×2 (10:03→15:14)
[2017-01-15] MEDS: TAMSULOSIN HCL 0.4 MG CAP PO SCH (10:03)
[2017-01-15] MEDS: APIXABAN 5 MG TAB PO SCH ×2 (10:04→21:33)
[2017-01-15] MEDS: BUMETANIDE 2 MG TAB PO SCH ×2 (10:05→15:14)
[2017-01-15] MEDS: POTASSIUM CL 20 MEQ TAB PO SCH ×2 (10:05→21:32)
[2017-01-15] MEDS: SPIRONOLACTONE 25 MG TAB PO SCH (10:05)
[2017-01-15] MEDS: VENLAFAXINE XR 37.5 MG CAP PO SCH (10:06)
[2017-01-15] MEDS: SENNOSIDES/DOCUSATE SODIUM TAB PO SCH ×2 (10:06→21:32)
[2017-01-15] MEDS: INSULIN GLARGINE 100 UNITS/ML SYRINGE SC SCH ×2 (13:09→21:34)
--- NOTE | 2017-01-15 16:54 | HOSPPROG ---
Hospitalist Progress Note Assessment/Plan: # leg pain, suspect d/t diabetic neuropathy - increase gabapentin, incr Effexor - cont morphine PO # depression - Effexor increased today # LE edema - close to euvolemic - aldactone, bumex # GUNNAR on CKD - as baseline # new persistent a-fib - eliquis and metop # DM2 - glucs ok; on U500 at home - glargine 80 bid + lispro # hld - crestor # urinary retention - flomax # ARIEL - no CPAP # dispo - likely to [place] tomorrow Subjective: still feels very depressed; ongoing leg pain Objective: Vital Signs Temp Pulse Resp BP Pulse Ox 36.5 C 66 20 139/77 H 90 L 01/15/17 15:18 01/15/17 15:18 01/15/17 15:18 01/15/17 15:18 01/15/17 15:18 Laboratory Results 01/12/17 11:08 01/15/17 04:31 01/14/17 01/15/17 01/16/17 05:59 05:59 05:59 Intake Total 1100 640 Output Total 2750 1200 Balance -1650 -560 ECG personally reviewed discussed with Dr Calzada - Physical Exam Constitutional: obese Cardiovascular: regular rate and rhythym, no murmur, rub, or gallop Respiratory: no respiratory distress, no rales or rhonchi, clear to auscultation Gastrointestinal: normoactive bowel sounds, soft, non-tender abdomen, no palpable masses ICD10 Worksheet Patient Problems: Problems Problem Status Onset Peripheral edema Acute Hypertension Chronic Hyperlipidemia Chronic Diabetes Acute CHF with right heart failure Acute Renal failure, chronic Chronic Pneumonia Acute Hypokalemia Acute Renal failure (ARF), acute on chronic Acute Fluid overload Acute Bilateral lower extremity edema Acute Acute hypokalemia Acute CHF (congestive heart failure) Acute Anasarca Acute Elevated BUN Acute Obesity Acute Urinary retention Acute
[2017-01-15] MEDS: GABAPENTIN 300 MG CAP PO SCH (21:32)
[2017-01-15] MEDS: ROSUVASTATIN CALCIUM 20 MG TAB PO SCH (21:33)
[2017-01-16 06:47] LABS: ALBUMIN 3.2 g/dL (3.5-5.0); ANION GAP 13 mEq/L (8-16); CARBON DIOXIDE 32 mEq/l (22-31); CHLORIDE 95 mEq/L (97-110); CREATININE 1.3 mg/dL (0.7-1.3); GLOMERULAR FILTRATION RATE 56; GLUCOSE 132 mg/dL (70-100); SODIUM 140 mEq/L (134-144)
[2017-01-16] MEDS: INSULIN GLARGINE 100 UNITS/ML SYRINGE SC SCH (08:16)
[2017-01-16] MEDS: APIXABAN 5 MG TAB PO SCH (08:17)
[2017-01-16] MEDS: BUMETANIDE 2 MG TAB PO SCH ×2 (08:17→13:59)
[2017-01-16] MEDS: SPIRONOLACTONE 25 MG TAB PO SCH (08:18)
[2017-01-16] MEDS: TAMSULOSIN HCL 0.4 MG CAP PO SCH (08:18)
[2017-01-16] MEDS: GABAPENTIN 300 MG CAP PO SCH ×2 (08:19→16:24)
[2017-01-16] MEDS: POTASSIUM CL 20 MEQ TAB PO SCH (08:19)
[2017-01-16] MEDS: METOPROLOL TARTRATE 50 MG TAB PO SCH (08:19)
[2017-01-16 08:20] VITALS: BP 150/90
[2017-01-16] MEDS: INSULIN LISPRO 100 UNIT/ML SC SCH ×2 (08:28→16:26)
[2017-01-16] MEDS ORDERED: VENLAFAXINE XR 75 MG CAP PO SCH (09:00)
[2017-01-16] MEDS ORDERED: VENLAFAXINE HCL 75 MG TAB PO SCH (09:00)
[2017-01-16] MEDS ORDERED: morphINE IR 30 MG TAB PO PRN (09:09)
[2017-01-16 09:10] VITALS: PULSE 73; RESP 18; TEMP 97.7; O2SAT 92
[2017-01-16] MEDS: SENNOSIDES/DOCUSATE SODIUM TAB PO SCH (09:39)
--- NOTE | 2017-01-16 10:32 | PDIAF ---
- Diagnosis Code Status: Full Code - Medication Management Discharge Medications: Medications to Continue on Transfer Aspirin [Aspirin 81mg (*)] 81 mg PO DAILY 01/02/14 [Last Taken 01/02/17] Rosuvastatin Calcium [Crestor 20mg (*)] 20 mg PO HS 01/02/14 [Last Taken ] Ibuprofen [Motrin (*)] 400 mg PO BID PRN 05/11/16 [Last Taken Unknown] Insulin Regular, Human [Humulin R U-500] 130 unit SQ DAILY@1800 05/11/16 [Last Taken Unknown] Insulin Regular, Human [Humulin R U-500] 360 unit SQ DAILY@0730 05/11/16 [Last Taken 01/02/17] Allopurinol [Allopurinol 100 MG (*)] 100 mg PO DAILY #0 tab 05/14/16 [Last Taken 01/03/17] Bumetanide [Bumex (*)] 4 mg PO BID #30 tab 05/14/16 [Last Taken 01/02/17] Gabapentin [Neurontin 300 MG (*)] 300 mg PO BID #0 cap 05/14/16 [Last Taken ] Gatifloxacin 0.5% [Zymaxid 0.5%] 1 drop EACHEYE AD PRN 01/03/17 [Last Taken Unknown] Insulin Regular, Human [Humulin R U-500] 30 unit SQ DAILY@12 01/03/17 [Last Taken 01/02/17] Ketorolac 0.5% [Acular 0.5% Opht Drops (*)] 1 drops EACHEYE AD PRN 01/03/17 [ Last Taken Unknown] Metolazone [Zaroxolyn 2.5 mg (RX)] 2.5 mg PO DAILY 01/03/17 [Last Taken 01/02/17 ] Metoprolol Tartrate [Lopressor 50 mg (*)] 50 mg PO BID 01/03/17 [Last Taken ] Potassium Cl [Klor-Con 20 meq (*)] 40 meq PO BID 01/03/17 [Last Taken 01/02/17] oxyCODONE IR [Oxycodone Ir (*)] 10 mg PO TID PRN 01/03/17 [Last Taken 01/02/17] Discharge Medications: Refer to the Discharge Home Medication list for PRN reason. - Orders Services needed: Registered Nurse, Certified [employer] Tractor Driver, Master Photo Engraver , Physical Therapy, Occupational Therapy Diet Recommendation: potassium restricted Diet Texture: Regular Texture Diet Weigh Patient: weekly Activity/Weight Bearing Restrictions: full weight-bearing allowed Additional: Please be certain the patient gets weekly chemistry blood tests as ordered and that the results of all of these tests are forwarded to Dr. Marcel Mabry of [facility] - Labs/Radiology BMP Date: 01/23/17 (WEEKLY test, all results to Dr Marcel Mabry) Other Lab Name, Date and Time: Magnesium: 01/23 and weekly, all results to Dr Marcel Mabry - Follow Up Care Current Providers and Referrals: Marcel Mabry MD [Medical Doctor] -
--- NOTE | 2017-01-16 10:36 | HOSPPROG ---
Hospitalist Progress Note Assessment/Plan: DIAGNOSES: -acute urinary retention: on flomax -acute on chronic diastolic CHF: bumex/aldactone diuresis -his leg edema is now better than I have ever seen it -new persistant AFib: started on eliquis; good rate control on metoprolol -acute on chronic kidney disease: better today -Depression: seen by psychiatry, pt is not suicidal and not having psychotic features. He is started at present on venlafaxine which he is tolerting well at the new increased dose of 75 mg daily which will plan to continue. If he still has symptoms after 2-3 more weeks could consider possibly further increase in dose -DM, insulin dependent: normally using very large doses of U500 insulin, which we do not have here; overall reasonably good control here on basal/bolus -Chronic pain syndrome: doing reasonably well on his usual meds -ARIEL: does not use CPAP -Obesity, but with evidence of malnutrition due to poor intake overall he is doing nicely with no current urinary retention, diuresis to the best fluid status I have ever seen him with, and improvement to his best recent baseline renal function PLANS: -continue current management as above -outpt f/u for depression w primary care -outpt f/u for a fib w cardiol -outpt f/u w sleep medicine if he decides he will reconsider for use of cpap -continue current insulin; for economic reasons he will likely go back to the U500 regular via his PCP once returning home Disposition: - still waiting for government/ insurance approval for transfer to [facility] facility which could potentially happen today SUBJECTIVE: feels much better with continued decrease in his chronic leg pain and would like to decrease his narcotic dose Feels like he may be able to participate better in physical therapies now No other bothersome symptoms physically Thinks maybe starting to feel a bit better in terms of depression VITALS: stable without fever EXAM: alert oriented relaxed skin warm dry color ok no jvd resps easy lungs clear heart irreg abd soft nondistended legs remarkably little edema for him, really no pitting at present Objective: Vital Signs Temp Pulse Resp BP Pulse Ox 36.5 C 73 18 150/90 H 92 01/16/17 08:00 01/16/17 08:00 01/16/17 08:00 01/16/17 08:19 01/16/17 08:00 Laboratory Results 01/12/17 11:08 01/16/17 06:10 01/15/17 01/16/17 01/17/17 06:59 06:59 06:59 Intake Total 640 1520 Output Total 1200 2450 Balance -560 -930 ICD10 Worksheet Patient Problems: Problems Problem Status Onset Diabetes Acute Hypokalemia Acute Renal failure (ARF), acute on chronic Acute Urinary retention Acute Hypertension Chronic Acute hypokalemia Acute Anasarca Acute Bilateral lower extremity edema Acute CHF (congestive heart failure) Acute CHF with right heart failure Acute Elevated BUN Acute Fluid overload Acute Obesity Acute Peripheral edema Acute Pneumonia Acute Hyperlipidemia Chronic Renal failure, chronic Chronic
--- NOTE | 2017-01-16 10:39 | SOAPPROG ---
SOAP Progress Note Assessment/Plan: Assessment/Plan: CKD stage III: Cr currently markedly better than baseline and stable at 1.3. - Will continue to monitor. - Avoid nephrotoxins. Hypokalemia: chronic, likely from diuretic use, pt on Bumex and metolazone at home. K now improved to 4.0. - Will continue KCl replacement 20meq po BID. - Pt getting spironolactone. - Will continue to monitor. Hypervolemia: chronic, likely due to CHF. Currently much improved on combination of spironolactone and Bumex, will continue to monitor. Subjective: No acute events overnight. Pt still with some pain in legs but improving. Objective: Vital Signs Temp Pulse Resp BP Pulse Ox 36.5 C 73 18 150/90 H 92 01/16/17 08:00 01/16/17 08:00 01/16/17 08:00 01/16/17 08:19 01/16/17 08:00 Laboratory Results 01/12/17 11:08 01/16/17 06:10 01/15/17 01/16/17 01/17/17 05:59 05:59 05:59 Intake Total 640 1520 Output Total 1200 2450 Balance -560 -930 General: alert and oriented, no acute distress Eyes; EOMI, PERRL OP: Clear CV: RRR Resp: nonlabored respirations, CTAB Abd: Soft, NT Ext: no edema BLE Neuro: CN II-XII grossly intact, no asterixis ICD10 Worksheet Patient Problems: Problems Problem Status Onset Diabetes Acute Hypokalemia Acute Renal failure (ARF), acute on chronic Acute Urinary retention Acute Hypertension Chronic Acute hypokalemia Acute Anasarca Acute Bilateral lower extremity edema Acute CHF (congestive heart failure) Acute CHF with right heart failure Acute Elevated BUN Acute Fluid overload Acute Obesity Acute Peripheral edema Acute Pneumonia Acute Hyperlipidemia Chronic Renal failure, chronic Chronic
--- NOTE | 2017-01-16 15:43 | PDDCSUM ---
Discharge Summary Discharge Summary: DISCHARGE DIAGNOSES: -Acute urinary retention -Acute on chronic diastolic CHF -Atrial fibrillation, new diagnosis, rate controlled on metoprolol and is on Eliquis now for anticoagulation -Acute on chronic kidney disease -Adjustment disorder with situational depression -Type 2 diabetes mellitus -Chronic pain syndrome with chronic daily prescribed narcotic -Obstructive sleep apnea, patient not using CPAP per his preference -Obesity -Severe deconditioning and gait instability, patient unable to ambulate CONSULTANTS: Dr. Daja garcia PROCEDURES: PICC line insertion CT scan abdomen HOSPITAL COURSE SUMMARY: This patient came into the hospital unable to urinate was found have acute urinary retention. The cause for this is probably multifactorial but he did require Gallo catheter drainage for this. He did have a Gallo catheter placed by Dr. Austin Betancur and has had no complications since then. In addition as is usually the case during his admissions here the patient had acute diastolic congestive heart failure and acute renal failure upon arrival here. He has responded quite well to more aggressive diuresis with excellent removal of of fluid from his legs and otherwise an improvement in his renal function back to baseline. additionally while the patient was here in the hospital he did describe that he has some depression. Initially he stated he was not really suicidal but asked questions about physician assisted suicide. Upon his evaluation by psychiatry the patient did not really seem suicidal and he has not really been suicidal upon repeated questioning here through the rest of his hospital stay. We have started him on some venlafaxine and he is actually feeling significantly improved with that medication. He has not had any side effects of the medication so far. At this time from a cardiac, renal And psychiatric standpoint he is stable for discharge from hospital. His discharge has been delayed somewhat now while we have worked her way through the logistics of Pass R score evaluation and getting him approved for his transfer to a retirement facility. At this point his weakness and deconditioning or such that he is unable to stand or ambulate independently so home need ongoing physical therapy to build up strength and balance before heading back home. PENDING TEST RESULTS: None MEDICATION CHANGES: Addition of Eliquis for anticoagulation Addition of metoprolol for AFib rate control Addition of venlafaxine as an antidepressant FOLLOW-UP PLAN: With primary care after release from the retirement facility With [facility] for follow-up of his atrial fibrillation, in Greater than 35 minutes bedside and care coordination time today
== END 2017-01-16 17:58 | DRG 695 ==
LOC: EDUNIT# → F3E 14:10 → OBSVTOIN 01-04 17:29 → F3E 01-06 00:27
PROVIDERS: ADMIT Student in an Organized Health Care Education/Training Program; ATTEND Student in an Organized Health Care Education/Training Program
PROC: 02HV33Z Insertion of Infusion Device into Superior Vena Cava, Percutaneous Approach (ICD-10-PCS; principal; 2017-01-03)
PROC: 0T9B70Z Drainage of Bladder with Drainage Device, Via Natural or Artificial Opening (ICD-10-PCS; 2017-01-03)
DX: R33.8 Other retention of urine (principal); I13.0 Hypertensive heart and chronic kidney disease with heart failure and stage 1 through stage 4 chronic kidney disease, or unspecified chronic kidney disease; I50.33 Acute on chronic diastolic (congestive) heart failure; N18.3 Chronic kidney disease, stage 3 (moderate); E87.6 Hypokalemia; I48.91 Unspecified atrial fibrillation; F43.21 Adjustment disorder with depressed mood; E11.9 Type 2 diabetes mellitus without complications; G89.4 Chronic pain syndrome; G47.33 Obstructive sleep apnea (adult) (pediatric); E66.01 Morbid (severe) obesity due to excess calories; Z66 Do not resuscitate
CPT/HCPCS: 82947-QW; 96374; 97162-GP; 97166-GO; 97530-GO; 97530-GP; 97535-GO; C1751; G0378; J0696; J1815; J2997; Q9967